=== PATIENT | female | born 1965 | race Caucasian/White ===

== ENCOUNTER 2020-05-22 08:20 | Inpatient (IN) | payer OTHER ==
--- NOTE | 2020-05-22 08:37 | BHS.RME ---
Substance Use & Tx History - Substance Use History Alcohol Substance amount: 1.5 bottles wine Frequency of use: Daily Substance route: Oral Date of Last Use: 05/16/20 - Last Treatment Date of last treatment: 05/16-05/21/20 Treatment type: Substance Use Disorder (EDISON) Where was last treatment: Detox Physical/Psych/Mental Status - Behavior General Behavior: Increased activity (restlessness, agitation) Eye Contact: Normal - Cooperativeness Cooperativeness: Cooperative - Thinking Thought Processes: Tight, Logical, Goal Directed Thought content: Future oriented - Physical Health Problems Is patient presently having any pain?: No Does patient presently have any injuries (include location): No Does patient currently have a fever: No Is patient : No CIWA Nausea/Vomitin-No Nausea/No Vomiting Muscle Tremors: None Anxiety: 0-No Anxiety, at Ease Agitation: 0-Normal Activity Paroxysmal Sweats: No Perspiration Orientation: 0-Oriented Tacttile Disturbances: 0-None Auditory Disturbances: 0-None Visual Disturbances: 0-None Headache: 0-None Present CIWA-Ar Total Score: 0
[2020-05-22 08:56] VITALS: BMI 39.6
--- NOTE | 2020-05-22 09:24 | HP ---
CIWA Score Nausea/Vomitin-No Nausea/No Vomiting Muscle Tremors: None Anxiety: 0-No Anxiety, at Ease Agitation: 0-Normal Activity Paroxysmal Sweats: No Perspiration Orientation: 0-Oriented Tacttile Disturbances: 0-None Auditory Disturbances: 0-None Visual Disturbances: 0-None Headache: 0-None Present CIWA-Ar Total Score: 0 - Admission Criteria OASAS Guidelines: Admission for Medically Managed Detox: Requires at least one of the followin. CIWA greater than 12 2. Seizures within the past 24 hours 3. Delirium tremens within the past 24 hours 4. Hallucinations within the past 24 hours 5. Acute intervention needed for co occurring medical disorder 6. Acute intervention needed for co occurring psychiatric disorder 7. Severe withdrawal that cannot be handled at a lower level of care (continued vomiting, continued diarrhea, abnormal vital signs) requiring intravenous medication and/or fluids 8. Admitting History and Physical - Admission Chief Complaint: " I want to go to rehab. I just completed detox." History of Present Illness: 54 year old female with history of alcohol dependence who just completed detox at [facility] yesterday and discharged yesterday. COVID swab negative from her original admission at [facility] on 05/19/20. Substance Use & Tx History - Substance Use History Alcohol Substance amount: 1.5 bottles wine Frequency of use: Daily Substance route: Oral Date of Last Use: 05/16/20 - Last Treatment Date of last treatment: 05/16-05/21/20 Treatment type: Substance Use Disorder (EDISON) Where was last treatment: Detox PMH: Sjogren's Disesase, Fibromyalgia, Hypothyroidism, Hypoglycemia, Urinary Incontinence, Pituitary Microadenoma Psurg: Gastric bypass 10 years ago, C/S X 3, Right Knee Replacement, Right Foot Fusion Psych: anxiety, Depression Lives in [place] with and 3 children. No legal issues pending. She meets criteria for rehab as patient needs to gain insight into her disorder and has had multiple failures on detox. DOMINIQUE=0 CIWA=0 History Source: Patient Limitations to Obtaining History: No Limitations - Past Medical History Renal/: Yes: Other (urinary incontinence) Musculoskeletal: Yes: Other Rheumatology: Yes: Fibromyalgia, Vasculitis Endocrine: Yes: Hypothyroidism - Past Surgical History Past Surgical History: Yes: Bariatric Surgery, Joint Replacement Additional Past Surgical History: Right foot fusion - Smoking History Smoking history: Never smoked Have you smoked in the past 12 months: No - Alcohol/Substance Use Hx Alcohol Use: Yes Number of Drinks Daily: 10 - Social History Usual Living Arrangement: Yes: With Spouse Do you think of yourself as: Straight/Heterosexual ADL: Independent 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, 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 History of Recent Travel: No Admission ROS S - HPI Exam Limitations: No Limitations - Ebola screening Have you traveled outside of the country in the last 21 days: No Have you had contact with anyone from an Ebola affected area: No Have you been sick,other than usual withdrawal symptoms: No Do you have a fever: No - Review of Systems Constitutional: No Symptoms Reported EENT: reports: No Symptoms Reported Respiratory: reports: No Symptoms reported Cardiac: reports: No Symptoms Reported GI: reports: No Symptoms Reported : reports: No Symptoms Reported Musculoskeletal: reports: No Symptoms Reported Integumentary: reports: No Symptoms Reported Neuro: reports: No Symptoms reported Endocrine: reports: No Symptoms Reported Hematology: reports: No Symptoms Reported Psychiatric: reports: Judgement Intact, Mood/Affect Appropiate, Orientated x3 Other Systems: Reviewed and Negative Patient History - Patient Medical History Hx Anemia: No Hx Asthma: No Hx Chronic Obstructive Pulmonary Disease (COPD): No Hx Cancer: No Hx Cardiac Disorders: No Hx Congestive Heart Failure: No Hx Hypertension: No Hx Hypercholesterolemia: No Hx Pacemaker: No HX Cerebrovascular Accident: No Hx Seizures: No Hx Dementia: No Hx Diabetes: No Hx Gastrointestinal Disorders: No Hx Liver Disease: No Hx Genitourinary Disorders: Yes (urinary incontinence) Hx Sexually Transmitted Disorders: No Hx Renal Disease (ESRD): No Hx Thyroid Disease: Yes (hypothyroidism) Hx Human Immunodeficiency Virus (HIV): No Hx Hepatitis C: No Hx Depression: Yes Hx Suicide Attempt: No Hx Bipolar Disorder: No Hx Schizophrenia: No Other Medical History: Anxiety Disorder - Patient Surgical History Past Surgical History: Yes Hx Neurologic Surgery: No Hx Cataract Extraction: No Hx Cardiac Surgery: No Hx Lung Surgery: No Hx Breast Surgery: No Hx Breast Biopsy: No Hx Abdominal Surgery: No Hx Appendectomy: No Hx Cholecystectomy: No Hx Genitourinary Surgery: No Hx Section: Yes (X3) Hx Orthopedic Surgery: Yes (right hip replacement right foot fusion) Hx Hysterectomy: No Anesthesia Reaction: No - PPD History Previous Implant?: Yes Documented Results: Negative w/proof Implanted On Prior [facility] Admission?: No PPD to be Administered?: Yes - Smoking Cessation Smoking history: Never smoked Have you smoked in the past 12 months: No Hx Chewing Tobacco Use: No Initiated information on smoking cessation: No - Substance & Tx. History Hx Alcohol Use: Yes Hx Substance Use: Yes Substance Use Type: Alcohol Hx Substance Use Treatment: Yes - Substances abused Alcohol Substance route: Oral Frequency: Daily Amount used: 1bottle and half bottle Age of first use: 20 Date of last use: 05/12/20 Admission Physical Exam S - Vital Signs Vital Signs: Vital Signs - 24 hr 05/22/20 08:48 Temperature 97.7 F Pulse Rate 65 Respiratory 18 Rate Blood Pressure 118/81 - Physical General Appearance: Yes: No Apparent Distress, Nourished, Appropriately Dressed HEENTM: Yes: EOMI, Hearing grossly Normal, Normal ENT Inspection, Normocephalic, Normal Voice, DEBBIE, Pharynx Normal, Tm's normal Respiratory: Yes: Chest Non-Tender, Lungs Clear, Normal Breath Sounds, No Respiratory Distress, No Accessory Muscle Use Neck: Yes: No masses,lesions,Nodules, Supple, Trachea in good position Breast: Yes: Breast Exam Deferred Cardiology: Yes: Regular Rhythm, Regular Rate, S1, S2 Abdominal: Yes: Normal Bowel Sounds, Non Tender, Soft, Protuberent, Surgical Scar Genitourinary: Yes: Within Normal Limits Back: Yes: Normal Inspection Musculoskeletal: Yes: full range of Motion, Gait Steady, Pelvis Stable Extremities: Yes: Normal Capillary Refill, Normal Inspection, Normal Range of Motion, Non-Tender 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: Yes: 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 NML intact, Fully Oriented, Alert, Motor Strength 5/5, Normal Mood/Affect, Normal Response Integumentary: Yes: Normal Color, Dry, Warm Lymphatic: Yes: Within Normal Limits - Diagnostic (1) Alcohol dependence in early, early partial, sustained full, or sustained partial remission Current Visit: Yes Status: Acute (2) Obesity (BMI 30.0-34.9) Current Visit: Yes Status: Acute (3) Sjogren's disease Current Visit: Yes Status: Acute (4) Fibromyalgia Current Visit: Yes Status: Acute (5) Hypothyroidism Current Visit: Yes Status: Acute (6) Pituitary microadenoma Current Visit: Yes Status: Acute (7) Urinary incontinence Current Visit: Yes Status: Acute (8) Anxiety Current Visit: Yes Status: Acute (9) Depression Current Visit: Yes Status: Acute Cleared for Admission [facility] - Detox or Rehab [facility] Level of Care: Medically Supervised Detox Regimen/Protocol: Not Applicable Claeared for Rehab Admission: Yes Screened but not Admitted - Documentation of Visit Screened but not Admitted: No Breathalyzer - Breathalyzer Breathalyzer: 0 Vital Signs - Vital Signs Vital signs refused: No Temperature: 97.7 F Temperature source: Oral Pulse Rate: 65 Respiratory Rate: 18 Blood Pressure: 118/81 Blood Pressure position: Sitting - Height Height: 5 ft - Weight Weight: 203 lb Weight measurement method: Standing scale - BMI Body Mass Index (BMI): 39.6 - Bowel Function Bowel Movement: No Urine Drug Screen - Test Device Lot number: [id number] Expiration date: 05/06/22 (just completed detox) - Control Is test valid?: Yes - Results Drug screen NEGATIVE: No Urine drug screen results: BZO-Benzodiazepines Inpatient Rehab Admission - Rehab Decision to Admit Inpatient rehab admission?: Yes - Initial Determination Are CD services needed?: Yes Free of communicable disease: Yes Not in need of hospitalization: Yes - Rehab Admission Criteria Previous failed treatment: Yes Poor recovery environment: Yes Comorbidities: Yes Lacks judgement: Yes Patient is meeting Inpatient Rehab admission criteria:: Yes
[2020-05-22] MEDS ORDERED: LOPERAMIDE HCL 2 MG CAPSULE PO PRN (10:04)
[2020-05-22] MEDS ORDERED: guaiFENesin 200 MG/10 ML 10 ML UNIT-DOSE CUPS PO PRN (10:04)
[2020-05-22] MEDS ORDERED: MAGNESIUM CITRATE 300 ML BOTTLE PO PRN (10:04)
[2020-05-22] MEDS ORDERED: P-EPHED 60MG/TRIPROLIDI 2.5MG TABLET PO PRN (10:04)
[2020-05-22] MEDS ORDERED: TUBERCULIN PPD 5 TU/0.1ML VIAL ID ONE (13:07)
[2020-05-22] MEDS: hydrOXYzine PAMOATE 25 MG CAPSULE (FP) PO SCH ×3 (13:10→21:33)
[2020-05-22] MEDS: PRENATAL VITAMINS W/ FOLIC ACID TABLET (FP) PO SCH (13:10)
[2020-05-22] MEDS ORDERED: PT OWN MED DRAWER 7, Y5N ONE ×3 (13:23→19:17)
[2020-05-22 14:36] LABS: HEMATOCRIT 40.6 % (32.4-45.2); HEMOGLOBIN 13.2 GM/dL (10.7-15.3); MCH 31.5 pg (25.7-33.7); MCHC 32.6 g/dl (32.0-36.0); MEAN CELL VOLUME 96.6 fl (80-96); MEAN PLT VOLUME 8.9 fl (7.5-11.1); PLATELET COUNT 256 K/MM3 (134-434); WHITE BLOOD COUNT 5.2 K/mm3 (4.0-10.0)
[2020-05-22 14:40] LABS: BILIRUBIN,TOTAL 0.5 mg/dL (0.2-1); CALCIUM 9.1 mg/dL (8.5-10.1); CREATININE 1.1 mg/dL (0.55-1.3); POTASSIUM 4.6 mmol/L (3.5-5.1); TOT PROT 7.6 g/dl (6.4-8.2)
[2020-05-22 14:54] LABS: SICKLE CELL SCREEN NEGATIVE (NEGATIVE)
--- NOTE | 2020-05-22 16:57 | EKG ---
Test Reason : Blood Pressure : / mmHG Vent. Rate : 056 BPM Atrial Rate : 056 BPM P-R Int : 176 ms QRS Dur : 094 ms QT Int : 464 ms P-R-T Axes : 044 003 005 degrees QTc Int : 447 ms SINUS BRADYCARDIA MODERATE VOLTAGE CRITERIA FOR LVH, MAY BE NORMAL VARIANT BORDERLINE ECG NO PREVIOUS ECGS AVAILABLE Confirmed by ROSA PERRIN MD ([id number]) on 05/22/2020 4:57:40 PM Referred By: Confirmed By:ROSA PERRIN MD
[2020-05-22 17:01] LABS: URINE APPEARANCE CLEAR; URINE BILIRUBIN NEGATIVE (NEGATIVE); URINE COLOR YELLOW; URINE GLUCOSE (UA) NEGATIVE (NEGATIVE); URINE KETONE NEGATIVE (NEGATIVE); URINE LEUK ESTERASE NEGATIVE (NEGATIVE); URINE NITRITE NEGATIVE (NEGATIVE); URINE PROTEIN NEGATIVE (NEGATIVE)
[2020-05-22] MEDS: HYDROXYCHLOROQUINE SO4 200 MG TABLET (FP) PO SCH (17:51)
[2020-05-22] MEDS: OXYBUTYNIN CHLORIDE 5 MG TABLET PO SCH (21:33)
[2020-05-22] MEDS: THIAMINE HCL 100 MG TABLET (FP) PO SCH (21:33)
[2020-05-22] MEDS: MELATONIN 5 MG TABLETS PO SCH (21:33)
[2020-05-22] MEDS ORDERED: PATIENT'S OWN MEDICATION (NON-FORMULARY) (Mirabegron [Myrbetriq] 50 MG) PO SCH (22:00)
[2020-05-23] MEDS: ACETAMINOPHEN 325 MG TABLET (FP) PO PRN (00:37)
[2020-05-23] MEDS ORDERED: PT OWN MED DRAWER 7, Y5N ONE ×5 (06:08→19:56)
[2020-05-23] MEDS: hydrOXYzine PAMOATE 25 MG CAPSULE (FP) PO SCH ×2 (06:26→10:01)
[2020-05-23] MEDS: LEVOTHYROXINE NA 25 MCG TABLET (FP) PO SCH (07:24)
[2020-05-23] MEDS: HYDROXYCHLOROQUINE SO4 200 MG TABLET (FP) PO SCH ×2 (07:36→18:23)
[2020-05-23] MEDS: PRENATAL VITAMINS W/ FOLIC ACID TABLET (FP) PO SCH (10:01)
[2020-05-23] MEDS: OXYBUTYNIN CHLORIDE 5 MG TABLET PO SCH ×2 (10:01→21:41)
[2020-05-23] MEDS: FOLIC ACID 1 MG TABLET (FP) PO SCH (10:01)
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
[2020-05-23] MEDS: FLUoxetine HCL 20 MG CAPSULE PO SCH (11:51)
[2020-05-23] MEDS: hydrOXYzine PAMOATE 50 MG CAPSULE (FP) PO PRN ×2 (11:55→18:25)
--- NOTE | 2020-05-23 12:04 | PN ---
[facility] Progress Note Note: PATIENT C/O FEELING INTERMITTENT DIZZINESS WHEN ARISING FROM BED AND UNSTEADY GAIT. SHE STATES SHE HAS HAD SYMPTOMS IN THE PAST AND HAD TESTING DONE FROM CT OF THE HEAD, BLOOD WORK AND NEUROLOGY CONSULT. PATIENT STATES WORK UP WAS NEGATIVE BUT SHE CONTINUES TO HAVE SYMPTOMS. SHE IS ADMITTED TO REHAB FOR ALCOHOL DEPENDENCE AND CURRENTLY DENIES SHAKE,SWEATS, HEADACHE, CP AND SOB. Vital Signs Temperature 97.5 F L 05/23/20 07:22 Pulse Rate 60 05/23/20 07:22 Respiratory Rate 18 05/23/20 07:22 Blood Pressure 113/70 05/23/20 07:22 O2 Sat by Pulse Oximetry (%) 99 05/22/20 20:39 Laboratory Tests 05/22/20 05/22/20 05/22/20 08:50 10:10 10:10 WBC 5.2 RBC 4.20 Hgb 13.2 Hct 40.6 MCV 96.6 H MCH 31.5 MCHC 32.6 RDW 16.0 H Plt Count 256 MPV 8.9 Sickle Cell Screen Negative Sodium Potassium Chloride Carbon Dioxide Anion Gap BUN Creatinine Est GFR (CKD-EPI)AfAm Est GFR (CKD-EPI)NonAf Random Glucose Calcium Total Bilirubin AST ALT Alkaline Phosphatase Total Protein Albumin Urine Color Urine Appearance Urine pH Ur Specific [place] Urine Protein Urine Glucose (UA) Urine Ketones Urine Blood Urine Nitrite Urine Bilirubin Urine Urobilinogen Ur Leukocyte Esterase POC Urine HCG, Qual Negative Syphilis Serology HIV Ag/Ab Combo Qual Negative 05/22/20 05/22/20 05/22/20 10:10 10:10 14:11 WBC RBC Hgb Hct MCV MCH MCHC RDW Plt Count MPV Sickle Cell Screen Sodium 137 Potassium 4.6 Chloride 103 Carbon Dioxide 28 Anion Gap 6 L BUN 14.0 Creatinine 1.1 Est GFR (CKD-EPI)AfAm 65.45 Est GFR (CKD-EPI)NonAf 56.47 Random Glucose 78 Calcium 9.1 Total Bilirubin 0.5 AST 28 ALT 29 Alkaline Phosphatase 101 Total Protein 7.6 Albumin 4.0 Urine Color Yellow Urine Appearance Clear Urine pH 5.0 Ur Specific [place] 1.009 L Urine Protein Negative Urine Glucose (UA) Negative Urine Ketones Negative Urine Blood Negative Urine Nitrite Negative Urine Bilirubin Negative Urine Urobilinogen 1.0 Ur Leukocyte Esterase Negative POC Urine HCG, Qual Syphilis Serology Non-reactive HIV Ag/Ab Combo Qual PE ALERT AND ORIENTED X 3 SKIN WARM AND DRY +PERRLA EOMS INTACT BL GI ND,NT EXT FULL ROM, AMB AD JESSICA NO TREMORS A/P: ALCOHOL DEPENDENCE EPISODIC DIZZINESS ORAL FLUID ENCOURAGED-WATER PITCHER ORDERED AT BEDSIDE ORTHOSTATIC BP EVERY 8 HOURS X 3 DAYS BGM DAILY X 3 DAYS CANE FOR AMBULATION SUPPORT CONTINUE TO MONITOR CLINICALLY
[2020-05-23] MEDS ORDERED: QUEtiapine FUMARATE 100 MG TABLET (FP) ONE (20:01)
[2020-05-23] MEDS ORDERED: QUEtiapine FUMARATE 25 MG TABLET ONE (20:02)
[2020-05-23] MEDS: IBUPROFEN 400 MG TABLET (FP) PO PRN (20:20)
[2020-05-23] MEDS: MELATONIN 5 MG TABLETS PO SCH (21:41)
[2020-05-23] MEDS: QUETIAPINE FUMARATE 100 MG, QUETIAPINE FUMARATE 25 MG PO SCH (21:41)
[2020-05-23] MEDS: THIAMINE HCL 100 MG TABLET (FP) PO SCH (21:43)
[2020-05-23] MEDS ORDERED: QUEtiapine FUMARATE 300 MG TABLET PO SCH (22:00)
[2020-05-24] MEDS: LEVOTHYROXINE NA 25 MCG TABLET (FP) PO SCH (06:19)
[2020-05-24] MEDS: hydrOXYzine PAMOATE 50 MG CAPSULE (FP) PO PRN ×4 (06:21→22:19)
[2020-05-24] MEDS: HYDROXYCHLOROQUINE SO4 200 MG TABLET (FP) PO SCH ×2 (07:26→17:57)
[2020-05-24] MEDS ORDERED: PT OWN MED DRAWER 7, Y5N ONE ×2 (08:22→17:57)
[2020-05-24] MEDS: FOLIC ACID 1 MG TABLET (FP) PO SCH (10:49)
[2020-05-24] MEDS: FLUoxetine HCL 20 MG CAPSULE PO SCH (10:49)
[2020-05-24] MEDS: OXYBUTYNIN CHLORIDE 5 MG TABLET PO SCH ×2 (10:49→21:17)
[2020-05-24] MEDS: PRENATAL VITAMINS W/ FOLIC ACID TABLET (FP) PO SCH (10:49)
[2020-05-24] MEDS ORDERED: QUEtiapine FUMARATE 100 MG TABLET (FP) ONE (19:19)
[2020-05-24] MEDS ORDERED: QUEtiapine FUMARATE 25 MG TABLET ONE (19:19)
[2020-05-24] MEDS: MELATONIN 5 MG TABLETS PO SCH (21:16)
[2020-05-24] MEDS: THIAMINE HCL 100 MG TABLET (FP) PO SCH (21:16)
[2020-05-24] MEDS: QUETIAPINE FUMARATE 100 MG, QUETIAPINE FUMARATE 25 MG PO SCH (21:16)
[2020-05-25] MEDS ORDERED: PT OWN MED DRAWER 7, Y5N ONE ×3 (03:11→16:46)
[2020-05-25] MEDS: LEVOTHYROXINE NA 25 MCG TABLET (FP) PO SCH (06:26)
[2020-05-25] MEDS: hydrOXYzine PAMOATE 50 MG CAPSULE (FP) PO PRN ×4 (06:27→21:11)
[2020-05-25] MEDS: HYDROXYCHLOROQUINE SO4 200 MG TABLET (FP) PO SCH ×2 (07:01→17:06)
[2020-05-25] MEDS: FLUoxetine HCL 20 MG CAPSULE PO SCH (10:09)
[2020-05-25] MEDS: OXYBUTYNIN CHLORIDE 5 MG TABLET PO SCH ×2 (10:09→21:09)
[2020-05-25] MEDS: FOLIC ACID 1 MG TABLET (FP) PO SCH (10:09)
[2020-05-25] MEDS: PRENATAL VITAMINS W/ FOLIC ACID TABLET (FP) PO SCH (10:09)
[2020-05-25] MEDS ORDERED: QUEtiapine FUMARATE 100 MG TABLET (FP) ONE (18:59)
[2020-05-25] MEDS ORDERED: QUEtiapine FUMARATE 25 MG TABLET ONE (19:00)
[2020-05-25] MEDS: QUETIAPINE FUMARATE 100 MG, QUETIAPINE FUMARATE 25 MG PO SCH (21:09)
[2020-05-25] MEDS: MELATONIN 5 MG TABLETS PO SCH (21:09)
[2020-05-25] MEDS: THIAMINE HCL 100 MG TABLET (FP) PO SCH (21:10)
[2020-05-26] MEDS: LEVOTHYROXINE NA 25 MCG TABLET (FP) PO SCH (06:31)
[2020-05-26] MEDS: hydrOXYzine PAMOATE 50 MG CAPSULE (FP) PO PRN ×2 (06:31→18:01)
[2020-05-26] MEDS: HYDROXYCHLOROQUINE SO4 200 MG TABLET (FP) PO SCH ×2 (07:17→18:00)
[2020-05-26] MEDS: FLUoxetine HCL 20 MG CAPSULE PO SCH (09:40)
[2020-05-26] MEDS: PRENATAL VITAMINS W/ FOLIC ACID TABLET (FP) PO SCH (09:40)
[2020-05-26] MEDS: OXYBUTYNIN CHLORIDE 5 MG TABLET PO SCH ×2 (09:40→21:35)
[2020-05-26] MEDS: FOLIC ACID 1 MG TABLET (FP) PO SCH (09:40)
--- NOTE | 2020-05-26 11:38 | PN ---
[facility] Progress Note Note: Vital Signs Temperature 98.2 F 05/26/20 06:20 Pulse Rate 60 05/26/20 06:20 Respiratory Rate 18 05/26/20 06:20 Blood Pressure 98/62 05/26/20 06:20 O2 Sat by Pulse Oximetry (%) 97 05/26/20 06:20 Laboratory Tests 05/22/20 05/22/20 05/22/20 08:50 10:10 10:10 WBC 5.2 RBC 4.20 Hgb 13.2 Hct 40.6 MCV 96.6 H MCH 31.5 MCHC 32.6 RDW 16.0 H Plt Count 256 MPV 8.9 Sickle Cell Screen Negative Sodium Potassium Chloride Carbon Dioxide Anion Gap BUN Creatinine Est GFR (CKD-EPI)AfAm Est GFR (CKD-EPI)NonAf POC Glucometer Random Glucose Calcium Total Bilirubin AST ALT Alkaline Phosphatase Total Protein Albumin Urine Color Urine Appearance Urine pH Ur Specific [place] Urine Protein Urine Glucose (UA) Urine Ketones Urine Blood Urine Nitrite Urine Bilirubin Urine Urobilinogen Ur Leukocyte Esterase POC Urine HCG, Qual Negative Syphilis Serology HIV Ag/Ab Combo Qual Negative 05/22/20 05/22/20 05/22/20 10:10 10:10 14:11 WBC RBC Hgb Hct MCV MCH MCHC RDW Plt Count MPV Sickle Cell Screen Sodium 137 Potassium 4.6 Chloride 103 Carbon Dioxide 28 Anion Gap 6 L BUN 14.0 Creatinine 1.1 Est GFR (CKD-EPI)AfAm 65.45 Est GFR (CKD-EPI)NonAf 56.47 POC Glucometer Random Glucose 78 Calcium 9.1 Total Bilirubin 0.5 AST 28 ALT 29 Alkaline Phosphatase 101 Total Protein 7.6 Albumin 4.0 Urine Color Yellow Urine Appearance Clear Urine pH 5.0 Ur Specific [place] 1.009 L Urine Protein Negative Urine Glucose (UA) Negative Urine Ketones Negative Urine Blood Negative Urine Nitrite Negative Urine Bilirubin Negative Urine Urobilinogen 1.0 Ur Leukocyte Esterase Negative POC Urine HCG, Qual Syphilis Serology Non-reactive HIV Ag/Ab Combo Qual 05/24/20 05/25/20 05/26/20 06:18 06:25 06:31 WBC RBC Hgb Hct MCV MCH MCHC RDW Plt Count MPV Sickle Cell Screen Sodium Potassium Chloride Carbon Dioxide Anion Gap BUN Creatinine Est GFR (CKD-EPI)AfAm Est GFR (CKD-EPI)NonAf POC Glucometer 88 85 98 Random Glucose Calcium Total Bilirubin AST ALT Alkaline Phosphatase Total Protein Albumin Urine Color Urine Appearance Urine pH Ur Specific [place] Urine Protein Urine Glucose (UA) Urine Ketones Urine Blood Urine Nitrite Urine Bilirubin Urine Urobilinogen Ur Leukocyte Esterase POC Urine HCG, Qual Syphilis Serology HIV Ag/Ab Combo Qual Patient evaluated for follow up unsteady gait. ROS: occasional dizziness. Denies lightheadedness, syncope, shakes and sweating PE alert and oriented x 3 skin warm and dry +perrla, eoms intact bl ext full rom, amb ad darlene no tremors ambulating steady with cane A/P episodic dizziness/unsteady gait BGM reviewed and results stable 85-98 V/S reviewed WNL continue cane for ambulation support Patient medically advised to follow up with PCP/neurologist for work up upon discharge Vital Signs (72 hours) 05/23/20 05/23/20 05/23/20 13:56 14:00 21:12 Temperature 98.4 F Pulse Rate 63 Pulse Rate [ 66 Right side Standing] Respiratory 16 Rate Blood Pressure 113/70 Blood Pressure 128/80 [Right side Standing] O2 Sat by Pulse 96 95 Oximetry (%) 05/24/20 05/24/20 05/24/20 06:14 14:30 18:31 Temperature 97.1 F L Pulse Rate 59 L Pulse Rate [ Right side Standing] Respiratory 16 Rate Blood Pressure 112/75 Blood Pressure [Right side Standing] O2 Sat by Pulse 95 97 97 Oximetry (%) 05/24/20 05/25/20 05/25/20 20:44 06:49 14:30 Temperature 97.5 F L Pulse Rate 58 L Pulse Rate [ Right side Standing] Respiratory 18 Rate Blood Pressure 103/68 Blood Pressure [Right side Standing] O2 Sat by Pulse 99 97 98 Oximetry (%) 05/25/20 05/26/20 20:33 06:20 Temperature 98.2 F Pulse Rate 60 Pulse Rate [ Right side Standing] Respiratory 18 Rate Blood Pressure 98/62 Blood Pressure [Right side Standing] O2 Sat by Pulse 96 97 Oximetry (%)
--- NOTE | 2020-05-26 11:44 | PN ---
[facility] Progress Note Note: Pt requesting Vit B12 and Vit D. Vital Signs - 24 hr 05/25/20 05/25/20 05/26/20 14:30 20:33 06:20 Temperature 98.2 F Pulse Rate 60 Respiratory 18 Rate Blood Pressure 98/62 O2 Sat by Pulse 98 96 97 Oximetry (%) Laboratory Tests 05/22/20 05/22/20 05/22/20 08:50 10:10 10:10 WBC 5.2 RBC 4.20 Hgb 13.2 Hct 40.6 MCV 96.6 H MCH 31.5 MCHC 32.6 RDW 16.0 H Plt Count 256 MPV 8.9 Sickle Cell Screen Negative Sodium Potassium Chloride Carbon Dioxide Anion Gap BUN Creatinine Est GFR (CKD-EPI)AfAm Est GFR (CKD-EPI)NonAf POC Glucometer Random Glucose Calcium Total Bilirubin AST ALT Alkaline Phosphatase Total Protein Albumin Urine Color Urine Appearance Urine pH Ur Specific [place] Urine Protein Urine Glucose (UA) Urine Ketones Urine Blood Urine Nitrite Urine Bilirubin Urine Urobilinogen Ur Leukocyte Esterase POC Urine HCG, Qual Negative Syphilis Serology HIV Ag/Ab Combo Qual Negative 05/22/20 05/22/20 05/22/20 10:10 10:10 14:11 WBC RBC Hgb Hct MCV MCH MCHC RDW Plt Count MPV Sickle Cell Screen Sodium 137 Potassium 4.6 Chloride 103 Carbon Dioxide 28 Anion Gap 6 L BUN 14.0 Creatinine 1.1 Est GFR (CKD-EPI)AfAm 65.45 Est GFR (CKD-EPI)NonAf 56.47 POC Glucometer Random Glucose 78 Calcium 9.1 Total Bilirubin 0.5 AST 28 ALT 29 Alkaline Phosphatase 101 Total Protein 7.6 Albumin 4.0 Urine Color Yellow Urine Appearance Clear Urine pH 5.0 Ur Specific [place] 1.009 L Urine Protein Negative Urine Glucose (UA) Negative Urine Ketones Negative Urine Blood Negative Urine Nitrite Negative Urine Bilirubin Negative Urine Urobilinogen 1.0 Ur Leukocyte Esterase Negative POC Urine HCG, Qual Syphilis Serology Non-reactive HIV Ag/Ab Combo Qual 05/24/20 05/25/20 05/26/20 06:18 06:25 06:31 WBC RBC Hgb Hct MCV MCH MCHC RDW Plt Count MPV Sickle Cell Screen Sodium Potassium Chloride Carbon Dioxide Anion Gap BUN Creatinine Est GFR (CKD-EPI)AfAm Est GFR (CKD-EPI)NonAf POC Glucometer 88 85 98 Random Glucose Calcium Total Bilirubin AST ALT Alkaline Phosphatase Total Protein Albumin Urine Color Urine Appearance Urine pH Ur Specific [place] Urine Protein Urine Glucose (UA) Urine Ketones Urine Blood Urine Nitrite Urine Bilirubin Urine Urobilinogen Ur Leukocyte Esterase POC Urine HCG, Qual Syphilis Serology HIV Ag/Ab Combo Qual P-Restarted Vit B12 and Vit D as directed.
[2020-05-26] MEDS: MAG HYDROX/AL HYDROX/SIMETH 30 ML UNIT-DOSE CUP PO PRN (12:35)
[2020-05-26] MEDS: CYANOCOBALAMIN 1,000 MCG TABLET (FP) PO SCH (12:37)
[2020-05-26] MEDS ORDERED: PT OWN MED DRAWER 7, Y5N ONE ×2 (18:00→21:27)
[2020-05-26] MEDS ORDERED: QUEtiapine FUMARATE 100 MG TABLET (FP) ONE (21:26)
[2020-05-26] MEDS ORDERED: QUEtiapine FUMARATE 25 MG TABLET ONE (21:26)
[2020-05-26] MEDS: QUETIAPINE FUMARATE 100 MG, QUETIAPINE FUMARATE 25 MG PO SCH (21:34)
[2020-05-26] MEDS: THIAMINE HCL 100 MG TABLET (FP) PO SCH (21:35)
[2020-05-26] MEDS: MELATONIN 5 MG TABLETS PO SCH (21:36)
[2020-05-27] MEDS ORDERED: PT OWN MED DRAWER 7, Y5N ONE ×3 (04:00→19:35)
[2020-05-27] MEDS: MAGNESIUM HYDROX 2400MG/30ML ORAL SUSPENSION 30 ML CUP PO PRN (04:30)
[2020-05-27] MEDS: hydrOXYzine PAMOATE 50 MG CAPSULE (FP) PO PRN ×3 (05:54→17:55)
[2020-05-27] MEDS: LEVOTHYROXINE NA 25 MCG TABLET (FP) PO SCH (06:08)
[2020-05-27] MEDS: HYDROXYCHLOROQUINE SO4 200 MG TABLET (FP) PO SCH ×2 (07:26→17:53)
[2020-05-27] MEDS: FLUoxetine HCL 20 MG CAPSULE PO SCH (09:45)
[2020-05-27] MEDS: FOLIC ACID 1 MG TABLET (FP) PO SCH (09:45)
[2020-05-27] MEDS: CHOLECALCIFEROL (VIT D3) 1,000 UNIT (25 MCG) TABLET PO SCH (09:46)
[2020-05-27] MEDS: PRENATAL VITAMINS W/ FOLIC ACID TABLET (FP) PO SCH (09:46)
[2020-05-27] MEDS: CYANOCOBALAMIN 1,000 MCG TABLET (FP) PO SCH (09:46)
[2020-05-27] MEDS: OXYBUTYNIN CHLORIDE 5 MG TABLET PO SCH ×2 (09:46→21:15)
[2020-05-27] MEDS ORDERED: QUEtiapine FUMARATE 25 MG TABLET ONE (19:34)
[2020-05-27] MEDS ORDERED: QUEtiapine FUMARATE 100 MG TABLET (FP) ONE (19:34)
[2020-05-27] MEDS: MELATONIN 5 MG TABLETS PO SCH (21:14)
[2020-05-27] MEDS: QUETIAPINE FUMARATE 100 MG, QUETIAPINE FUMARATE 25 MG PO SCH (21:15)
[2020-05-27] MEDS: THIAMINE HCL 100 MG TABLET (FP) PO SCH (21:15)
[2020-05-28] MEDS: LEVOTHYROXINE NA 25 MCG TABLET (FP) PO SCH (06:28)
[2020-05-28] MEDS: hydrOXYzine PAMOATE 50 MG CAPSULE (FP) PO PRN ×3 (06:28→17:42)
[2020-05-28] MEDS: HYDROXYCHLOROQUINE SO4 200 MG TABLET (FP) PO SCH ×2 (07:11→17:40)
[2020-05-28] MEDS ORDERED: PT OWN MED DRAWER 7, Y5N ONE ×4 (08:49→21:23)
[2020-05-28] MEDS: OXYBUTYNIN CHLORIDE 5 MG TABLET PO SCH ×2 (09:28→21:20)
[2020-05-28] MEDS: PRENATAL VITAMINS W/ FOLIC ACID TABLET (FP) PO SCH (09:29)
[2020-05-28] MEDS: FLUoxetine HCL 20 MG CAPSULE PO SCH (09:29)
[2020-05-28] MEDS: FOLIC ACID 1 MG TABLET (FP) PO SCH (09:29)
[2020-05-28] MEDS: CYANOCOBALAMIN 1,000 MCG TABLET (FP) PO SCH (09:29)
[2020-05-28] MEDS: CHOLECALCIFEROL (VIT D3) 1,000 UNIT (25 MCG) TABLET PO SCH (09:30)
[2020-05-28] MEDS: IBUPROFEN 400 MG TABLET (FP) PO PRN (12:33)
--- NOTE | 2020-05-28 15:17 | PN ---
[facility] Progress Note Note: c/o muscle spasms/tightness on upper back. Reports she takes Tizanidine for muscle spasm. Pt reports she has a primary care provider, Dr. Hermann Vasquez on [address], [place] Also c/o dry mouth. Vital Signs - 24 hr 05/27/20 05/27/20 05/28/20 21:14 22:27 06:25 Temperature 97.5 F L Pulse Rate 69 61 Respiratory 16 Rate Blood Pressure 95/64 115/70 O2 Sat by Pulse 98 97 Oximetry (%) Alert o x 3 nad oob ambulating with steady gait. Chronic upper back pain Lidocaine 5% patch TP as directed Fermin-Hernández ointment apply as directed Tizanidine 2 mg po Q8H prn for muscle spasm Increase po fluids
[2020-05-28] MEDS: LIDOCAINE 5% TOPICAL PATCH TP SCH (15:38)
[2020-05-28] MEDS ORDERED: QUEtiapine FUMARATE 100 MG TABLET (FP) ONE (21:18)
[2020-05-28] MEDS ORDERED: QUEtiapine FUMARATE 25 MG TABLET ONE (21:18)
[2020-05-28] MEDS: QUETIAPINE FUMARATE 100 MG, QUETIAPINE FUMARATE 25 MG PO SCH (21:19)
[2020-05-28] MEDS: LIDOCAINE PATCH REMOVAL MC SCH (21:20)
[2020-05-28] MEDS: MELATONIN 5 MG TABLETS PO SCH (21:20)
[2020-05-28] MEDS: METHYL SALICYLATE/MENTHOL OINT 30 GM TUBE TP SCH (21:20)
[2020-05-28] MEDS: THIAMINE HCL 100 MG TABLET (FP) PO SCH (21:21)
[2020-05-28] MEDS ORDERED: METHYL SALICYLATE/MENTHOL OINT 30 GM TUBE TP SCH (22:00)
[2020-05-29] MEDS: hydrOXYzine PAMOATE 50 MG CAPSULE (FP) PO PRN ×3 (06:31→17:42)
[2020-05-29] MEDS: LEVOTHYROXINE NA 25 MCG TABLET (FP) PO SCH (06:31)
[2020-05-29] MEDS: HYDROXYCHLOROQUINE SO4 200 MG TABLET (FP) PO SCH ×2 (07:11→17:40)
[2020-05-29] MEDS ORDERED: PT OWN MED DRAWER 7, Y5N ONE ×2 (08:55→21:31)
[2020-05-29] MEDS: LIDOCAINE 5% TOPICAL PATCH TP SCH (09:41)
[2020-05-29] MEDS: CHOLECALCIFEROL (VIT D3) 1,000 UNIT (25 MCG) TABLET PO SCH (09:42)
[2020-05-29] MEDS: CYANOCOBALAMIN 1,000 MCG TABLET (FP) PO SCH (09:42)
[2020-05-29] MEDS: FLUoxetine HCL 20 MG CAPSULE PO SCH (09:43)
[2020-05-29] MEDS: FOLIC ACID 1 MG TABLET (FP) PO SCH (09:43)
[2020-05-29] MEDS: PRENATAL VITAMINS W/ FOLIC ACID TABLET (FP) PO SCH (09:43)
[2020-05-29] MEDS: METHYL SALICYLATE/MENTHOL OINT 30 GM TUBE TP SCH ×2 (09:43→21:32)
[2020-05-29] MEDS: OXYBUTYNIN CHLORIDE 5 MG TABLET PO SCH ×2 (09:43→21:31)
[2020-05-29] MEDS ORDERED: QUEtiapine FUMARATE 25 MG TABLET ONE (19:46)
[2020-05-29] MEDS ORDERED: QUEtiapine FUMARATE 100 MG TABLET (FP) ONE (19:46)
[2020-05-29] MEDS: THIAMINE HCL 100 MG TABLET (FP) PO SCH (21:28)
[2020-05-29] MEDS: QUETIAPINE FUMARATE 100 MG, QUETIAPINE FUMARATE 25 MG PO SCH (21:28)
[2020-05-29] MEDS: MELATONIN 5 MG TABLETS PO SCH (21:29)
[2020-05-29] MEDS: LIDOCAINE PATCH REMOVAL MC SCH (21:33)
[2020-05-30] MEDS: LEVOTHYROXINE NA 25 MCG TABLET (FP) PO SCH (06:23)
[2020-05-30] MEDS: hydrOXYzine PAMOATE 50 MG CAPSULE (FP) PO PRN (06:24)
[2020-05-30] MEDS: HYDROXYCHLOROQUINE SO4 200 MG TABLET (FP) PO SCH ×2 (07:01→17:00)
[2020-05-30] MEDS ORDERED: PT OWN MED DRAWER 7, Y5N ONE ×3 (08:38→19:09)
[2020-05-30] MEDS: LIDOCAINE 5% TOPICAL PATCH TP SCH (09:51)
[2020-05-30] MEDS: PRENATAL VITAMINS W/ FOLIC ACID TABLET (FP) PO SCH (09:52)
[2020-05-30] MEDS: CYANOCOBALAMIN 1,000 MCG TABLET (FP) PO SCH (09:52)
[2020-05-30] MEDS: OXYBUTYNIN CHLORIDE 5 MG TABLET PO SCH ×2 (09:52→21:12)
[2020-05-30] MEDS: METHYL SALICYLATE/MENTHOL OINT 30 GM TUBE TP SCH ×2 (09:52→21:12)
[2020-05-30] MEDS: CHOLECALCIFEROL (VIT D3) 1,000 UNIT (25 MCG) TABLET PO SCH (09:52)
[2020-05-30] MEDS: FOLIC ACID 1 MG TABLET (FP) PO SCH (09:52)
[2020-05-30] MEDS: FLUoxetine HCL 20 MG CAPSULE PO SCH (09:52)
--- NOTE | 2020-05-30 13:44 | PN ---
[facility] Progress Note Note: Patient evaluated for rash to right posterior ear and c/o nasal dryness. Laboratory Tests 05/22/20 05/22/20 05/22/20 08:50 10:10 10:10 WBC 5.2 RBC 4.20 Hgb 13.2 Hct 40.6 MCV 96.6 H MCH 31.5 MCHC 32.6 RDW 16.0 H Plt Count 256 MPV 8.9 Sickle Cell Screen Negative Sodium Potassium Chloride Carbon Dioxide Anion Gap BUN Creatinine Est GFR (CKD-EPI)AfAm Est GFR (CKD-EPI)NonAf POC Glucometer Random Glucose Calcium Total Bilirubin AST ALT Alkaline Phosphatase Total Protein Albumin Urine Color Urine Appearance Urine pH Ur Specific [place] Urine Protein Urine Glucose (UA) Urine Ketones Urine Blood Urine Nitrite Urine Bilirubin Urine Urobilinogen Ur Leukocyte Esterase POC Urine HCG, Qual Negative Syphilis Serology HIV Ag/Ab Combo Qual Negative 05/22/20 05/22/20 05/22/20 10:10 10:10 14:11 WBC RBC Hgb Hct MCV MCH MCHC RDW Plt Count MPV Sickle Cell Screen Sodium 137 Potassium 4.6 Chloride 103 Carbon Dioxide 28 Anion Gap 6 L BUN 14.0 Creatinine 1.1 Est GFR (CKD-EPI)AfAm 65.45 Est GFR (CKD-EPI)NonAf 56.47 POC Glucometer Random Glucose 78 Calcium 9.1 Total Bilirubin 0.5 AST 28 ALT 29 Alkaline Phosphatase 101 Total Protein 7.6 Albumin 4.0 Urine Color Yellow Urine Appearance Clear Urine pH 5.0 Ur Specific [place] 1.009 L Urine Protein Negative Urine Glucose (UA) Negative Urine Ketones Negative Urine Blood Negative Urine Nitrite Negative Urine Bilirubin Negative Urine Urobilinogen 1.0 Ur Leukocyte Esterase Negative POC Urine HCG, Qual Syphilis Serology Non-reactive HIV Ag/Ab Combo Qual 05/24/20 05/25/20 05/26/20 06:18 06:25 06:31 WBC RBC Hgb Hct MCV MCH MCHC RDW Plt Count MPV Sickle Cell Screen Sodium Potassium Chloride Carbon Dioxide Anion Gap BUN Creatinine Est GFR (CKD-EPI)AfAm Est GFR (CKD-EPI)NonAf POC Glucometer 88 85 98 Random Glucose Calcium Total Bilirubin AST ALT Alkaline Phosphatase Total Protein Albumin Urine Color Urine Appearance Urine pH Ur Specific [place] Urine Protein Urine Glucose (UA) Urine Ketones Urine Blood Urine Nitrite Urine Bilirubin Urine Urobilinogen Ur Leukocyte Esterase POC Urine HCG, Qual Syphilis Serology HIV Ag/Ab Combo Qual Vital Signs Temperature 97.8 F 05/30/20 06:20 Pulse Rate 56 L 05/30/20 06:20 Respiratory Rate 16 05/30/20 06:20 Blood Pressure 110/74 05/30/20 06:20 O2 Sat by Pulse Oximetry (%) 95 05/30/20 06:20 PE alert and oriented x 3 skin warm and dry +EOMS intact bl bilateral ears symmetrical right posterior auricular area with dry, patchy red rash no open areas A/P Right ear rash possibly related to fungal dermatitis nasal dryness-reported (pt has mask in place) Will start ocean mist NS to moisten nasal mucosa ketoconazole 2% cream daily to right ear rash daily x 2 weeks monitor clinically
[2020-05-30] MEDS: KETOCONAZOLE 2% CREAM - 60GM TUBE TP SCH (14:17)
[2020-05-30] MEDS: ACETAMINOPHEN 325 MG TABLET (FP) PO PRN (18:10)
[2020-05-30] MEDS ORDERED: QUEtiapine FUMARATE 100 MG TABLET (FP) ONE (19:08)
[2020-05-30] MEDS ORDERED: QUEtiapine FUMARATE 25 MG TABLET ONE (19:08)
[2020-05-30] MEDS: LIDOCAINE PATCH REMOVAL MC SCH (21:12)
[2020-05-30] MEDS: MELATONIN 5 MG TABLETS PO SCH (21:12)
[2020-05-30] MEDS: QUETIAPINE FUMARATE 100 MG, QUETIAPINE FUMARATE 25 MG PO SCH (21:12)
[2020-05-30] MEDS: SODIUM CHLORIDE NASAL SPRAY 44 ML BOTTLE NS PRN (21:13)
[2020-05-30] MEDS: TIZANIDINE HCL 2 MG TABLET PO PRN (21:13)
[2020-05-30] MEDS: THIAMINE HCL 100 MG TABLET (FP) PO SCH (21:13)
[2020-05-31] MEDS: LEVOTHYROXINE NA 25 MCG TABLET (FP) PO SCH (06:22)
[2020-05-31] MEDS: hydrOXYzine PAMOATE 50 MG CAPSULE (FP) PO PRN ×3 (06:25→21:12)
[2020-05-31] MEDS: HYDROXYCHLOROQUINE SO4 200 MG TABLET (FP) PO SCH ×2 (07:41→18:27)
[2020-05-31] MEDS ORDERED: PT OWN MED DRAWER 7, Y5N ONE ×4 (07:42→21:13)
[2020-05-31] MEDS: KETOCONAZOLE 2% CREAM - 60GM TUBE TP SCH (09:37)
[2020-05-31] MEDS: PRENATAL VITAMINS W/ FOLIC ACID TABLET (FP) PO SCH (09:37)
[2020-05-31] MEDS: SODIUM CHLORIDE NASAL SPRAY 44 ML BOTTLE NS PRN (09:37)
[2020-05-31] MEDS: FOLIC ACID 1 MG TABLET (FP) PO SCH (09:38)
[2020-05-31] MEDS: METHYL SALICYLATE/MENTHOL OINT 30 GM TUBE TP SCH ×2 (09:38→21:07)
[2020-05-31] MEDS: OXYBUTYNIN CHLORIDE 5 MG TABLET PO SCH ×2 (09:38→21:07)
[2020-05-31] MEDS: CHOLECALCIFEROL (VIT D3) 1,000 UNIT (25 MCG) TABLET PO SCH (09:38)
[2020-05-31] MEDS: FLUoxetine HCL 20 MG CAPSULE PO SCH (09:38)
[2020-05-31] MEDS: CYANOCOBALAMIN 1,000 MCG TABLET (FP) PO SCH (09:38)
[2020-05-31] MEDS: LIDOCAINE 5% TOPICAL PATCH TP SCH (09:39)
[2020-05-31] MEDS ORDERED: QUEtiapine FUMARATE 25 MG TABLET ONE (20:41)
[2020-05-31] MEDS ORDERED: QUEtiapine FUMARATE 100 MG TABLET (FP) ONE (20:41)
[2020-05-31] MEDS: THIAMINE HCL 100 MG TABLET (FP) PO SCH (21:07)
[2020-05-31] MEDS: QUETIAPINE FUMARATE 100 MG, QUETIAPINE FUMARATE 25 MG PO SCH (21:07)
[2020-05-31] MEDS: LIDOCAINE PATCH REMOVAL MC SCH (21:08)
[2020-05-31] MEDS: MELATONIN 5 MG TABLETS PO SCH (21:09)
[2020-05-31] MEDS: TIZANIDINE HCL 2 MG TABLET PO PRN (21:13)
[2020-06-01] MEDS: LEVOTHYROXINE NA 25 MCG TABLET (FP) PO SCH (06:18)
[2020-06-01] MEDS: HYDROXYCHLOROQUINE SO4 200 MG TABLET (FP) PO SCH ×2 (07:24→18:26)
[2020-06-01] MEDS ORDERED: PT OWN MED DRAWER 7, Y5N ONE (07:25)
[2020-06-01] MEDS: SODIUM CHLORIDE NASAL SPRAY 44 ML BOTTLE NS PRN (09:43)
[2020-06-01] MEDS: LIDOCAINE 5% TOPICAL PATCH TP SCH (09:43)
[2020-06-01] MEDS: KETOCONAZOLE 2% CREAM - 60GM TUBE TP SCH (09:43)
[2020-06-01] MEDS: FLUoxetine HCL 20 MG CAPSULE PO SCH (09:44)
[2020-06-01] MEDS: FOLIC ACID 1 MG TABLET (FP) PO SCH (09:44)
[2020-06-01] MEDS: CHOLECALCIFEROL (VIT D3) 1,000 UNIT (25 MCG) TABLET PO SCH (09:44)
[2020-06-01] MEDS: PRENATAL VITAMINS W/ FOLIC ACID TABLET (FP) PO SCH (09:44)
[2020-06-01] MEDS: CYANOCOBALAMIN 1,000 MCG TABLET (FP) PO SCH (09:44)
[2020-06-01] MEDS: OXYBUTYNIN CHLORIDE 5 MG TABLET PO SCH ×2 (09:45→21:18)
[2020-06-01] MEDS: METHYL SALICYLATE/MENTHOL OINT 30 GM TUBE TP SCH ×2 (09:45→21:22)
[2020-06-01] MEDS: MAG HYDROX/AL HYDROX/SIMETH 30 ML UNIT-DOSE CUP PO PRN (11:13)
[2020-06-01] MEDS: ACETAMINOPHEN 325 MG TABLET (FP) PO PRN (18:28)
[2020-06-01] MEDS: hydrOXYzine PAMOATE 50 MG CAPSULE (FP) PO PRN (18:28)
[2020-06-01] MEDS ORDERED: QUEtiapine FUMARATE 25 MG TABLET ONE (19:55)
[2020-06-01] MEDS ORDERED: QUEtiapine FUMARATE 100 MG TABLET (FP) ONE (19:55)
[2020-06-01] MEDS: THIAMINE HCL 100 MG TABLET (FP) PO SCH (21:18)
[2020-06-01] MEDS: QUETIAPINE FUMARATE 100 MG, QUETIAPINE FUMARATE 25 MG PO SCH (21:19)
[2020-06-01] MEDS: MELATONIN 5 MG TABLETS PO SCH (21:20)
[2020-06-01] MEDS: LIDOCAINE PATCH REMOVAL MC SCH (21:20)
[2020-06-02] MEDS: LEVOTHYROXINE NA 25 MCG TABLET (FP) PO SCH (06:18)
[2020-06-02] MEDS ORDERED: PT OWN MED DRAWER 7, Y5N ONE ×9 (06:18→21:37)
[2020-06-02] MEDS: SODIUM CHLORIDE NASAL SPRAY 44 ML BOTTLE NS PRN (06:21)
[2020-06-02] MEDS: HYDROXYCHLOROQUINE SO4 200 MG TABLET (FP) PO SCH ×2 (07:34→20:29)
[2020-06-02] MEDS: OXYBUTYNIN CHLORIDE 5 MG TABLET PO SCH ×2 (09:44→21:38)
[2020-06-02] MEDS: CHOLECALCIFEROL (VIT D3) 1,000 UNIT (25 MCG) TABLET PO SCH (09:44)
[2020-06-02] MEDS: CYANOCOBALAMIN 1,000 MCG TABLET (FP) PO SCH (09:44)
[2020-06-02] MEDS: FOLIC ACID 1 MG TABLET (FP) PO SCH (09:44)
[2020-06-02] MEDS: FLUoxetine HCL 20 MG CAPSULE PO SCH (09:45)
[2020-06-02] MEDS: LIDOCAINE 5% TOPICAL PATCH TP SCH (09:45)
[2020-06-02] MEDS: METHYL SALICYLATE/MENTHOL OINT 30 GM TUBE TP SCH ×2 (09:47→21:34)
[2020-06-02] MEDS: KETOCONAZOLE 2% CREAM - 60GM TUBE TP SCH (10:00)
[2020-06-02] MEDS: MAG HYDROX/AL HYDROX/SIMETH 30 ML UNIT-DOSE CUP PO PRN (10:02)
[2020-06-02] MEDS: PRENATAL VITAMINS W/ FOLIC ACID TABLET (FP) PO SCH (10:55)
[2020-06-02] MEDS: CARBAMIDE PEROXIDE 6.5% OTIC 15 ML BOTTLE AS SCH ×2 (10:55→21:36)
--- NOTE | 2020-06-02 11:46 | PN ---
[facility] Progress Note Note: PATIENT HAS HX OF OAB AND CURRENTLY ON DITROPAN 5MG PO BID. PATIENT STATES " I AM STILL GETTING UP AT NIGHT TO URINATE". SHE DENIES FREQUENCY, BURNING AND URGENCY. Laboratory Tests 05/22/20 05/22/20 05/22/20 08:50 10:10 10:10 WBC 5.2 RBC 4.20 Hgb 13.2 Hct 40.6 MCV 96.6 H MCH 31.5 MCHC 32.6 RDW 16.0 H Plt Count 256 MPV 8.9 Sickle Cell Screen Negative Sodium Potassium Chloride Carbon Dioxide Anion Gap BUN Creatinine Est GFR (CKD-EPI)AfAm Est GFR (CKD-EPI)NonAf POC Glucometer Random Glucose Calcium Total Bilirubin AST ALT Alkaline Phosphatase Total Protein Albumin Urine Color Urine Appearance Urine pH Ur Specific [place] Urine Protein Urine Glucose (UA) Urine Ketones Urine Blood Urine Nitrite Urine Bilirubin Urine Urobilinogen Ur Leukocyte Esterase POC Urine HCG, Qual Negative Syphilis Serology HIV Ag/Ab Combo Qual Negative 05/22/20 05/22/20 05/22/20 10:10 10:10 14:11 WBC RBC Hgb Hct MCV MCH MCHC RDW Plt Count MPV Sickle Cell Screen Sodium 137 Potassium 4.6 Chloride 103 Carbon Dioxide 28 Anion Gap 6 L BUN 14.0 Creatinine 1.1 Est GFR (CKD-EPI)AfAm 65.45 Est GFR (CKD-EPI)NonAf 56.47 POC Glucometer Random Glucose 78 Calcium 9.1 Total Bilirubin 0.5 AST 28 ALT 29 Alkaline Phosphatase 101 Total Protein 7.6 Albumin 4.0 Urine Color Yellow Urine Appearance Clear Urine pH 5.0 Ur Specific [place] 1.009 L Urine Protein Negative Urine Glucose (UA) Negative Urine Ketones Negative Urine Blood Negative Urine Nitrite Negative Urine Bilirubin Negative Urine Urobilinogen 1.0 Ur Leukocyte Esterase Negative POC Urine HCG, Qual Syphilis Serology Non-reactive HIV Ag/Ab Combo Qual 05/24/20 05/25/20 05/26/20 06:18 06:25 06:31 WBC RBC Hgb Hct MCV MCH MCHC RDW Plt Count MPV Sickle Cell Screen Sodium Potassium Chloride Carbon Dioxide Anion Gap BUN Creatinine Est GFR (CKD-EPI)AfAm Est GFR (CKD-EPI)NonAf POC Glucometer 88 85 98 Random Glucose Calcium Total Bilirubin AST ALT Alkaline Phosphatase Total Protein Albumin Urine Color Urine Appearance Urine pH Ur Specific [place] Urine Protein Urine Glucose (UA) Urine Ketones Urine Blood Urine Nitrite Urine Bilirubin Urine Urobilinogen Ur Leukocyte Esterase POC Urine HCG, Qual Syphilis Serology HIV Ag/Ab Combo Qual Vital Signs Temperature 97 F L 06/02/20 06:25 Pulse Rate 64 06/02/20 06:25 Respiratory Rate 18 06/02/20 06:25 Blood Pressure 114/68 06/02/20 06:25 O2 Sat by Pulse Oximetry (%) 96 06/02/20 06:25 A/P OAB DITROPAN CHANGED TO 10MG PO HS.
[2020-06-02] MEDS: hydrOXYzine PAMOATE 50 MG CAPSULE (FP) PO PRN ×2 (14:16→21:41)
[2020-06-02] MEDS ORDERED: QUEtiapine FUMARATE 100 MG TABLET (FP) ONE (20:00)
[2020-06-02] MEDS ORDERED: QUEtiapine FUMARATE 25 MG TABLET ONE (20:00)
[2020-06-02] MEDS: MELATONIN 5 MG TABLETS PO SCH (21:36)
[2020-06-02] MEDS: QUETIAPINE FUMARATE 100 MG, QUETIAPINE FUMARATE 25 MG PO SCH (21:36)
[2020-06-02] MEDS: THIAMINE HCL 100 MG TABLET (FP) PO SCH (21:36)
[2020-06-02] MEDS: LIDOCAINE PATCH REMOVAL MC SCH (21:37)
[2020-06-03] MEDS ORDERED: PT OWN MED DRAWER 7, Y5N ONE ×4 (06:26→21:41)
[2020-06-03] MEDS: LEVOTHYROXINE NA 25 MCG TABLET (FP) PO SCH (06:36)
[2020-06-03] MEDS: hydrOXYzine PAMOATE 50 MG CAPSULE (FP) PO PRN ×3 (06:37→18:15)
[2020-06-03] MEDS: HYDROXYCHLOROQUINE SO4 200 MG TABLET (FP) PO SCH ×2 (07:33→18:11)
[2020-06-03] MEDS: OXYBUTYNIN CHLORIDE 5 MG TABLET PO SCH ×2 (09:42→21:41)
[2020-06-03] MEDS: CYANOCOBALAMIN 1,000 MCG TABLET (FP) PO SCH (09:42)
[2020-06-03] MEDS: FLUoxetine HCL 20 MG CAPSULE PO SCH (09:42)
[2020-06-03] MEDS: SODIUM CHLORIDE NASAL SPRAY 44 ML BOTTLE NS PRN (09:42)
[2020-06-03] MEDS: FOLIC ACID 1 MG TABLET (FP) PO SCH (09:42)
[2020-06-03] MEDS: CHOLECALCIFEROL (VIT D3) 1,000 UNIT (25 MCG) TABLET PO SCH (09:42)
[2020-06-03] MEDS: MAG HYDROX/AL HYDROX/SIMETH 30 ML UNIT-DOSE CUP PO PRN (09:43)
[2020-06-03] MEDS: METHYL SALICYLATE/MENTHOL OINT 30 GM TUBE TP SCH ×2 (09:44→21:36)
[2020-06-03] MEDS: CARBAMIDE PEROXIDE 6.5% OTIC 15 ML BOTTLE AS SCH ×2 (09:44→21:36)
[2020-06-03] MEDS: LIDOCAINE 5% TOPICAL PATCH TP SCH (09:44)
[2020-06-03] MEDS: KETOCONAZOLE 2% CREAM - 60GM TUBE TP SCH (09:45)
[2020-06-03] MEDS: PRENATAL VITAMINS W/ FOLIC ACID TABLET (FP) PO SCH (09:45)
[2020-06-03] MEDS ORDERED: QUEtiapine FUMARATE 25 MG TABLET ONE (18:46)
[2020-06-03] MEDS ORDERED: QUEtiapine FUMARATE 100 MG TABLET (FP) ONE (18:46)
[2020-06-03] MEDS: MELATONIN 5 MG TABLETS PO SCH (21:36)
[2020-06-03] MEDS: QUETIAPINE FUMARATE 100 MG, QUETIAPINE FUMARATE 25 MG PO SCH (21:37)
[2020-06-03] MEDS: LIDOCAINE PATCH REMOVAL MC SCH (21:37)
[2020-06-03] MEDS: THIAMINE HCL 100 MG TABLET (FP) PO SCH (21:37)
[2020-06-04] MEDS: LEVOTHYROXINE NA 25 MCG TABLET (FP) PO SCH (06:33)
[2020-06-04] MEDS: hydrOXYzine PAMOATE 50 MG CAPSULE (FP) PO PRN ×3 (06:34→21:26)
[2020-06-04] MEDS: HYDROXYCHLOROQUINE SO4 200 MG TABLET (FP) PO SCH ×2 (07:03→17:50)
[2020-06-04] MEDS ORDERED: PT OWN MED DRAWER 7, Y5N ONE ×6 (07:04→21:28)
[2020-06-04] MEDS: LIDOCAINE 5% TOPICAL PATCH TP SCH (10:06)
[2020-06-04] MEDS: PRENATAL VITAMINS W/ FOLIC ACID TABLET (FP) PO SCH (10:07)
[2020-06-04] MEDS: CYANOCOBALAMIN 1,000 MCG TABLET (FP) PO SCH (10:07)
[2020-06-04] MEDS: FOLIC ACID 1 MG TABLET (FP) PO SCH (10:07)
[2020-06-04] MEDS: PANTOPRAZOLE 40 MG TABLET PO SCH (10:07)
[2020-06-04] MEDS: FLUoxetine HCL 20 MG CAPSULE PO SCH (10:07)
[2020-06-04] MEDS: KETOCONAZOLE 2% CREAM - 60GM TUBE TP SCH (10:08)
[2020-06-04] MEDS: CHOLECALCIFEROL (VIT D3) 1,000 UNIT (25 MCG) TABLET PO SCH (10:08)
[2020-06-04] MEDS: OXYBUTYNIN CHLORIDE 5 MG TABLET PO SCH ×2 (10:08→21:26)
[2020-06-04] MEDS: METHYL SALICYLATE/MENTHOL OINT 30 GM TUBE TP SCH ×2 (10:08→21:28)
[2020-06-04] MEDS: SODIUM CHLORIDE NASAL SPRAY 44 ML BOTTLE NS PRN (10:09)
[2020-06-04] MEDS: CARBAMIDE PEROXIDE 6.5% OTIC 15 ML BOTTLE AS SCH ×2 (10:10→21:29)
[2020-06-04] MEDS ORDERED: QUEtiapine FUMARATE 25 MG TABLET ONE (19:46)
[2020-06-04] MEDS ORDERED: QUEtiapine FUMARATE 100 MG TABLET (FP) ONE (19:46)
[2020-06-04] MEDS: MELATONIN 5 MG TABLETS PO SCH (21:25)
[2020-06-04] MEDS: THIAMINE HCL 100 MG TABLET (FP) PO SCH (21:26)
[2020-06-04] MEDS: LIDOCAINE PATCH REMOVAL MC SCH (21:26)
[2020-06-04] MEDS: QUETIAPINE FUMARATE 100 MG, QUETIAPINE FUMARATE 25 MG PO SCH (21:26)
[2020-06-05] MEDS: hydrOXYzine PAMOATE 50 MG CAPSULE (FP) PO PRN ×2 (06:53→21:42)
[2020-06-05] MEDS: LEVOTHYROXINE NA 25 MCG TABLET (FP) PO SCH (06:53)
[2020-06-05] MEDS: HYDROXYCHLOROQUINE SO4 200 MG TABLET (FP) PO SCH ×2 (07:03→17:50)
[2020-06-05] MEDS ORDERED: PT OWN MED DRAWER 7, Y5N ONE (07:05)
[2020-06-05] MEDS: METHYL SALICYLATE/MENTHOL OINT 30 GM TUBE TP SCH ×2 (09:50→21:43)
[2020-06-05] MEDS: CARBAMIDE PEROXIDE 6.5% OTIC 15 ML BOTTLE AS SCH ×2 (09:50→21:43)
[2020-06-05] MEDS: LIDOCAINE 5% TOPICAL PATCH TP SCH (09:50)
[2020-06-05] MEDS: FOLIC ACID 1 MG TABLET (FP) PO SCH (09:50)
[2020-06-05] MEDS: OXYBUTYNIN CHLORIDE 5 MG TABLET PO SCH ×2 (09:50→21:42)
[2020-06-05] MEDS: PANTOPRAZOLE 40 MG TABLET PO SCH (09:51)
[2020-06-05] MEDS: PRENATAL VITAMINS W/ FOLIC ACID TABLET (FP) PO SCH (09:51)
[2020-06-05] MEDS: KETOCONAZOLE 2% CREAM - 60GM TUBE TP SCH (09:51)
[2020-06-05] MEDS: FLUoxetine HCL 20 MG CAPSULE PO SCH (09:51)
[2020-06-05] MEDS: CYANOCOBALAMIN 1,000 MCG TABLET (FP) PO SCH (09:52)
[2020-06-05] MEDS: CHOLECALCIFEROL (VIT D3) 1,000 UNIT (25 MCG) TABLET PO SCH (09:52)
--- NOTE | 2020-06-05 14:32 | PN ---
S Progress Note Note: Informed by nursing staff that patient wants to start Vivitrol. Patient unavailable for discussion of same. Talked to counselor who will review with patient her request to start Vivitrol because she informed the counselor she was interested in Campral. Will continue to monitor. Vital Signs Period Temp Pulse Resp BP Sys/[place] Pulse Ox Last 24 Hr 97.3 F 56 18 109/69 95-98
[2020-06-05] MEDS ORDERED: QUEtiapine FUMARATE 25 MG TABLET ONE (19:42)
[2020-06-05] MEDS ORDERED: QUEtiapine FUMARATE 100 MG TABLET (FP) ONE (19:42)
[2020-06-05] MEDS: THIAMINE HCL 100 MG TABLET (FP) PO SCH (21:41)
[2020-06-05] MEDS: QUETIAPINE FUMARATE 100 MG, QUETIAPINE FUMARATE 25 MG PO SCH (21:41)
[2020-06-05] MEDS: LIDOCAINE PATCH REMOVAL MC SCH (21:42)
[2020-06-05] MEDS: MELATONIN 5 MG TABLETS PO SCH (21:42)
[2020-06-06] MEDS: HYDROXYCHLOROQUINE SO4 200 MG TABLET (FP) PO SCH ×2 (07:04→17:24)
[2020-06-06] MEDS: LEVOTHYROXINE NA 25 MCG TABLET (FP) PO SCH (07:04)
[2020-06-06] MEDS ORDERED: PT OWN MED DRAWER 7, Y5N ONE ×4 (07:20→19:13)
[2020-06-06] MEDS: LIDOCAINE 5% TOPICAL PATCH TP SCH (09:58)
[2020-06-06] MEDS: SODIUM CHLORIDE NASAL SPRAY 44 ML BOTTLE NS PRN (09:58)
[2020-06-06] MEDS: PANTOPRAZOLE 40 MG TABLET PO SCH (09:59)
[2020-06-06] MEDS: PRENATAL VITAMINS W/ FOLIC ACID TABLET (FP) PO SCH (09:59)
[2020-06-06] MEDS: FOLIC ACID 1 MG TABLET (FP) PO SCH (09:59)
[2020-06-06] MEDS: CYANOCOBALAMIN 1,000 MCG TABLET (FP) PO SCH (09:59)
[2020-06-06] MEDS: KETOCONAZOLE 2% CREAM - 60GM TUBE TP SCH (09:59)
[2020-06-06] MEDS: METHYL SALICYLATE/MENTHOL OINT 30 GM TUBE TP SCH ×2 (10:00→21:49)
[2020-06-06] MEDS: CHOLECALCIFEROL (VIT D3) 1,000 UNIT (25 MCG) TABLET PO SCH (10:00)
[2020-06-06] MEDS: OXYBUTYNIN CHLORIDE 5 MG TABLET PO SCH ×2 (10:00→21:50)
[2020-06-06] MEDS: FLUoxetine HCL 20 MG CAPSULE PO SCH (10:00)
[2020-06-06] MEDS: hydrOXYzine PAMOATE 50 MG CAPSULE (FP) PO PRN ×2 (13:11→21:52)
[2020-06-06] MEDS ORDERED: QUEtiapine FUMARATE 100 MG TABLET (FP) ONE (19:12)
[2020-06-06] MEDS ORDERED: QUEtiapine FUMARATE 25 MG TABLET ONE (19:12)
[2020-06-06] MEDS: QUETIAPINE FUMARATE 100 MG, QUETIAPINE FUMARATE 25 MG PO SCH (21:50)
[2020-06-06] MEDS: MELATONIN 5 MG TABLETS PO SCH (21:50)
[2020-06-06] MEDS: THIAMINE HCL 100 MG TABLET (FP) PO SCH (21:50)
[2020-06-06] MEDS: LIDOCAINE PATCH REMOVAL MC SCH (21:50)
[2020-06-07] MEDS: LEVOTHYROXINE NA 25 MCG TABLET (FP) PO SCH (06:54)
[2020-06-07] MEDS: hydrOXYzine PAMOATE 50 MG CAPSULE (FP) PO PRN ×3 (06:55→23:37)
[2020-06-07] MEDS: HYDROXYCHLOROQUINE SO4 200 MG TABLET (FP) PO SCH ×2 (07:00→18:06)
[2020-06-07] MEDS ORDERED: PT OWN MED DRAWER 7, Y5N ONE ×5 (07:02→23:34)
[2020-06-07] MEDS: METHYL SALICYLATE/MENTHOL OINT 30 GM TUBE TP SCH ×2 (10:04→21:36)
[2020-06-07] MEDS: OXYBUTYNIN CHLORIDE 5 MG TABLET PO SCH ×2 (10:04→21:36)
[2020-06-07] MEDS: FOLIC ACID 1 MG TABLET (FP) PO SCH (10:05)
[2020-06-07] MEDS: LIDOCAINE 5% TOPICAL PATCH TP SCH (10:05)
[2020-06-07] MEDS: KETOCONAZOLE 2% CREAM - 60GM TUBE TP SCH (10:05)
[2020-06-07] MEDS: FLUoxetine HCL 20 MG CAPSULE PO SCH (10:06)
[2020-06-07] MEDS: SODIUM CHLORIDE NASAL SPRAY 44 ML BOTTLE NS PRN (10:06)
[2020-06-07] MEDS: PANTOPRAZOLE 40 MG TABLET PO SCH (10:06)
[2020-06-07] MEDS: PRENATAL VITAMINS W/ FOLIC ACID TABLET (FP) PO SCH (10:06)
[2020-06-07] MEDS: CYANOCOBALAMIN 1,000 MCG TABLET (FP) PO SCH (10:07)
[2020-06-07] MEDS: CHOLECALCIFEROL (VIT D3) 1,000 UNIT (25 MCG) TABLET PO SCH (10:07)
[2020-06-07] MEDS ORDERED: QUEtiapine FUMARATE 25 MG TABLET ONE (19:30)
[2020-06-07] MEDS ORDERED: QUEtiapine FUMARATE 100 MG TABLET (FP) ONE (19:30)
[2020-06-07] MEDS: THIAMINE HCL 100 MG TABLET (FP) PO SCH (21:34)
[2020-06-07] MEDS: QUETIAPINE FUMARATE 100 MG, QUETIAPINE FUMARATE 25 MG PO SCH (21:34)
[2020-06-07] MEDS: MELATONIN 5 MG TABLETS PO SCH (21:35)
[2020-06-07] MEDS: LIDOCAINE PATCH REMOVAL MC SCH (21:35)
[2020-06-08] MEDS: LEVOTHYROXINE NA 25 MCG TABLET (FP) PO SCH (06:30)
[2020-06-08] MEDS: hydrOXYzine PAMOATE 50 MG CAPSULE (FP) PO PRN ×3 (06:30→17:56)
[2020-06-08] MEDS: HYDROXYCHLOROQUINE SO4 200 MG TABLET (FP) PO SCH ×2 (07:00→17:57)
[2020-06-08] MEDS ORDERED: PT OWN MED DRAWER 7, Y5N ONE ×3 (08:10→17:55)
[2020-06-08] MEDS: KETOCONAZOLE 2% CREAM - 60GM TUBE TP SCH (09:53)
[2020-06-08] MEDS: PANTOPRAZOLE 40 MG TABLET PO SCH (09:54)
[2020-06-08] MEDS: CYANOCOBALAMIN 1,000 MCG TABLET (FP) PO SCH (09:54)
[2020-06-08] MEDS: OXYBUTYNIN CHLORIDE 5 MG TABLET PO SCH ×2 (09:54→21:50)
[2020-06-08] MEDS: PRENATAL VITAMINS W/ FOLIC ACID TABLET (FP) PO SCH (09:54)
[2020-06-08] MEDS: SODIUM CHLORIDE NASAL SPRAY 44 ML BOTTLE NS PRN (09:54)
[2020-06-08] MEDS: FLUoxetine HCL 20 MG CAPSULE PO SCH (09:54)
[2020-06-08] MEDS: CHOLECALCIFEROL (VIT D3) 1,000 UNIT (25 MCG) TABLET PO SCH (09:54)
[2020-06-08] MEDS: FOLIC ACID 1 MG TABLET (FP) PO SCH (09:54)
[2020-06-08] MEDS: LIDOCAINE 5% TOPICAL PATCH TP SCH (09:55)
[2020-06-08] MEDS: METHYL SALICYLATE/MENTHOL OINT 30 GM TUBE TP SCH ×2 (09:55→21:51)
[2020-06-08] MEDS ORDERED: QUEtiapine FUMARATE 25 MG TABLET ONE (21:09)
[2020-06-08] MEDS ORDERED: QUEtiapine FUMARATE 100 MG TABLET (FP) ONE (21:09)
[2020-06-08] MEDS: MELATONIN 5 MG TABLETS PO SCH (21:47)
[2020-06-08] MEDS: THIAMINE HCL 100 MG TABLET (FP) PO SCH (21:47)
[2020-06-08] MEDS: QUETIAPINE FUMARATE 100 MG, QUETIAPINE FUMARATE 25 MG PO SCH (21:48)
[2020-06-08] MEDS: IBUPROFEN 400 MG TABLET (FP) PO PRN (21:49)
[2020-06-08] MEDS: LIDOCAINE PATCH REMOVAL MC SCH (21:51)
[2020-06-09] MEDS: LEVOTHYROXINE NA 25 MCG TABLET (FP) PO SCH (06:44)
[2020-06-09] MEDS: hydrOXYzine PAMOATE 50 MG CAPSULE (FP) PO PRN ×3 (06:44→21:17)
[2020-06-09] MEDS: MAGNESIUM HYDROX 2400MG/30ML ORAL SUSPENSION 30 ML CUP PO PRN (06:46)
[2020-06-09] MEDS: HYDROXYCHLOROQUINE SO4 200 MG TABLET (FP) PO SCH ×2 (07:09→19:01)
[2020-06-09] MEDS ORDERED: PT OWN MED DRAWER 7, Y5N ONE ×3 (08:22→19:12)
[2020-06-09] MEDS ORDERED: COLLOIDAL OATMEAL 1 BAR EACH TP PRN (09:03)
[2020-06-09] MEDS: SODIUM CHLORIDE NASAL SPRAY 44 ML BOTTLE NS PRN (10:23)
[2020-06-09] MEDS: FOLIC ACID 1 MG TABLET (FP) PO SCH (10:23)
[2020-06-09] MEDS: FLUoxetine HCL 20 MG CAPSULE PO SCH (10:23)
[2020-06-09] MEDS: OXYBUTYNIN CHLORIDE 5 MG TABLET PO SCH ×2 (10:23→21:16)
[2020-06-09] MEDS: PANTOPRAZOLE 40 MG TABLET PO SCH (10:24)
[2020-06-09] MEDS: PRENATAL VITAMINS W/ FOLIC ACID TABLET (FP) PO SCH (10:24)
[2020-06-09] MEDS: KETOCONAZOLE 2% CREAM - 60GM TUBE TP SCH (10:25)
[2020-06-09] MEDS: LIDOCAINE 5% TOPICAL PATCH TP SCH (10:25)
[2020-06-09] MEDS: CYANOCOBALAMIN 1,000 MCG TABLET (FP) PO SCH (10:25)
[2020-06-09] MEDS: METHYL SALICYLATE/MENTHOL OINT 30 GM TUBE TP SCH ×2 (10:25→21:17)
[2020-06-09] MEDS: CHOLECALCIFEROL (VIT D3) 1,000 UNIT (25 MCG) TABLET PO SCH (10:26)
--- NOTE | 2020-06-09 12:42 | PN ---
[facility] Progress Note Note: Patient referred to [facility], however acceptance to program pending. Patient interested in campral treatment, however connect to OTP necessary for continuation of treatment. Counseling team to update nursing/medical staff once patient is accepted to program. Vital Signs Temperature 97.8 F 06/09/20 06:40 Pulse Rate 61 06/09/20 06:40 Respiratory Rate 16 06/09/20 06:40 Blood Pressure 135/82 06/09/20 06:40 O2 Sat by Pulse Oximetry (%) 97 06/09/20 06:40
[2020-06-09] MEDS ORDERED: QUEtiapine FUMARATE 25 MG TABLET ONE (19:11)
[2020-06-09] MEDS ORDERED: QUEtiapine FUMARATE 100 MG TABLET (FP) ONE (19:11)
[2020-06-09] MEDS: THIAMINE HCL 100 MG TABLET (FP) PO SCH (21:16)
[2020-06-09] MEDS: MELATONIN 5 MG TABLETS PO SCH (21:17)
[2020-06-09] MEDS: LIDOCAINE PATCH REMOVAL MC SCH (21:17)
[2020-06-09] MEDS: QUETIAPINE FUMARATE 100 MG, QUETIAPINE FUMARATE 25 MG PO SCH (21:17)
[2020-06-10] MEDS: LEVOTHYROXINE NA 25 MCG TABLET (FP) PO SCH (06:24)
[2020-06-10] MEDS: hydrOXYzine PAMOATE 50 MG CAPSULE (FP) PO PRN ×4 (06:25→21:39)
[2020-06-10] MEDS: HYDROXYCHLOROQUINE SO4 200 MG TABLET (FP) PO SCH ×2 (07:37→18:16)
[2020-06-10] MEDS: LIDOCAINE 5% TOPICAL PATCH TP SCH (09:51)
[2020-06-10] MEDS: FLUoxetine HCL 20 MG CAPSULE PO SCH (09:52)
[2020-06-10] MEDS: FOLIC ACID 1 MG TABLET (FP) PO SCH (09:52)
[2020-06-10] MEDS: PANTOPRAZOLE 40 MG TABLET PO SCH (09:52)
[2020-06-10] MEDS: CYANOCOBALAMIN 1,000 MCG TABLET (FP) PO SCH (09:52)
[2020-06-10] MEDS: CHOLECALCIFEROL (VIT D3) 1,000 UNIT (25 MCG) TABLET PO SCH (09:52)
[2020-06-10] MEDS: PRENATAL VITAMINS W/ FOLIC ACID TABLET (FP) PO SCH (09:53)
[2020-06-10] MEDS: OXYBUTYNIN CHLORIDE 5 MG TABLET PO SCH ×2 (09:53→21:38)
[2020-06-10] MEDS: METHYL SALICYLATE/MENTHOL OINT 30 GM TUBE TP SCH ×2 (09:53→21:40)
[2020-06-10] MEDS: KETOCONAZOLE 2% CREAM - 60GM TUBE TP SCH (09:53)
--- NOTE | 2020-06-10 10:34 | PN ---
S Progress Note Note: Patient wants to discuss starting Campral. Explained the actions of campral. Advised the patient that Campral could not be started until her referral was confirmed and we could be sure that the medications would be continued. Counseling aware. Vital Signs Period Temp Pulse Resp BP Sys/Moreau Pulse Ox Last 24 Hr 97.5 F 62 18 120/73 97-100
[2020-06-10] MEDS ORDERED: PT OWN MED DRAWER 7, Y5N ONE ×3 (17:18→21:53)
[2020-06-10] MEDS ORDERED: QUEtiapine FUMARATE 100 MG TABLET (FP) ONE (18:52)
[2020-06-10] MEDS ORDERED: QUEtiapine FUMARATE 25 MG TABLET ONE (18:52)
[2020-06-10] MEDS: THIAMINE HCL 100 MG TABLET (FP) PO SCH (21:37)
[2020-06-10] MEDS: MELATONIN 5 MG TABLETS PO SCH (21:37)
[2020-06-10] MEDS: LIDOCAINE PATCH REMOVAL MC SCH (21:37)
[2020-06-10] MEDS: QUETIAPINE FUMARATE 100 MG, QUETIAPINE FUMARATE 25 MG PO SCH (21:37)
[2020-06-11] MEDS: LEVOTHYROXINE NA 25 MCG TABLET (FP) PO SCH (06:40)
[2020-06-11] MEDS: hydrOXYzine PAMOATE 50 MG CAPSULE (FP) PO PRN ×3 (06:40→21:47)
[2020-06-11] MEDS: HYDROXYCHLOROQUINE SO4 200 MG TABLET (FP) PO SCH ×2 (07:16→17:04)
[2020-06-11] MEDS ORDERED: PT OWN MED DRAWER 7, Y5N ONE ×3 (09:01→17:02)
[2020-06-11] MEDS: LIDOCAINE 5% TOPICAL PATCH TP SCH (09:39)
[2020-06-11] MEDS: CHOLECALCIFEROL (VIT D3) 1,000 UNIT (25 MCG) TABLET PO SCH (09:39)
[2020-06-11] MEDS: PRENATAL VITAMINS W/ FOLIC ACID TABLET (FP) PO SCH (09:39)
[2020-06-11] MEDS: OXYBUTYNIN CHLORIDE 5 MG TABLET PO SCH ×2 (09:39→21:49)
[2020-06-11] MEDS: FLUoxetine HCL 20 MG CAPSULE PO SCH (09:40)
[2020-06-11] MEDS: CYANOCOBALAMIN 1,000 MCG TABLET (FP) PO SCH (09:40)
[2020-06-11] MEDS: PANTOPRAZOLE 40 MG TABLET PO SCH (09:40)
[2020-06-11] MEDS: METHYL SALICYLATE/MENTHOL OINT 30 GM TUBE TP SCH ×2 (09:41→21:49)
[2020-06-11] MEDS: KETOCONAZOLE 2% CREAM - 60GM TUBE TP SCH (09:41)
[2020-06-11] MEDS: FOLIC ACID 1 MG TABLET (FP) PO SCH (09:41)
[2020-06-11] MEDS: MAG HYDROX/AL HYDROX/SIMETH 30 ML UNIT-DOSE CUP PO PRN (11:04)
[2020-06-11] MEDS ORDERED: LACTULOSE 20 GM/30 ML UDC (FOR ORAL USE ONLY) PO PRN (11:15)
[2020-06-11] MEDS: LACTULOSE 20 GM/30 ML UDC (FOR ORAL USE ONLY) PO SCH ×2 (14:38→21:49)
--- NOTE | 2020-06-11 15:32 | PN ---
S Progress Note Note: Ammonia level elevated, mentation normal, no confusion noted. started Lactulose. Vital Signs Period Temp Pulse Resp BP Sys/Moreau Pulse Ox Last 24 Hr 97.5 F 59 18 118/73 96-97 Laboratory Last Values WBC 5.2 K/mm3 (4.0-10.0) 05/22/20 10:10 RBC 4.20 M/mm3 (3.60-5.2) 05/22/20 10:10 Hgb 13.2 GM/dL (10.7-15.3) 05/22/20 10:10 Hct 40.6 % (32.4-45.2) 05/22/20 10:10 MCV 96.6 fl (80-96) H 05/22/20 10:10 MCH 31.5 pg (25.7-33.7) 05/22/20 10:10 MCHC 32.6 g/dl (32.0-36.0) 05/22/20 10:10 RDW 16.0 % (11.6-15.6) H 05/22/20 10:10 Plt Count 256 K/MM3 (134-434) 05/22/20 10:10 MPV 8.9 fl (7.5-11.1) 05/22/20 10:10 Sickle Cell Screen Negative (NEGATIVE) 05/22/20 10:10 Sodium 137 mmol/L (136-145) 05/22/20 10:10 Potassium 4.6 mmol/L (3.5-5.1) 05/22/20 10:10 Chloride 103 mmol/L (98-107) 05/22/20 10:10 Carbon Dioxide 28 mmol/L (21-32) 05/22/20 10:10 Anion Gap 6 MMOL/L (8-16) L 05/22/20 10:10 BUN 14.0 mg/dL (7-18) 05/22/20 10:10 Creatinine 1.1 mg/dL (0.55-1.3) 05/22/20 10:10 Est GFR (CKD-EPI)AfAm 65.45 05/22/20 10:10 Est GFR (CKD-EPI)NonAf 56.47 05/22/20 10:10 POC Glucometer 98 UNITS (80-120) 05/26/20 06:31 Random Glucose 78 mg/dL (74-106) 08/20/20 10:10 Calcium 9.1 mg/dL (8.5-10.1) 05/22/20 10:10 Iron 55 ug/dL (50-175) 06/03/20 08:30 Total Bilirubin 0.5 mg/dL (0.2-1) 05/22/20 10:10 AST 28 U/L (15-37) 05/22/20 10:10 ALT 29 U/L (13-61) 05/22/20 10:10 Alkaline Phosphatase 101 U/L (45-117) 05/22/20 10:10 Ammonia 50.60 umol/L (11-32) H 06/11/20 07:50 Total Protein 7.6 g/dl (6.4-8.2) 05/22/20 10:10 Albumin 4.0 g/dl (3.4-5.0) 05/22/20 10:10 Urine Color Yellow 05/22/20 14:11 Urine Appearance Clear 05/22/20 14:11 Urine pH 5.0 (5.0-8.0) 05/22/20 14:11 Ur Specific [place] 1.009 (1.010-1.035) L 05/22/20 14:11 Urine Protein Negative (NEGATIVE) 05/22/20 14:11 Urine Glucose (UA) Negative (NEGATIVE) 05/22/20 14:11 Urine Ketones Negative (NEGATIVE) 05/22/20 14:11 Urine Blood Negative (NEGATIVE) 05/22/20 14:11 Urine Nitrite Negative (NEGATIVE) 05/22/20 14:11 Urine Bilirubin Negative (NEGATIVE) 05/22/20 14:11 Urine Urobilinogen 1.0 mg/dL (0.2-1.0) 05/22/20 14:11 Ur Leukocyte Esterase Negative (NEGATIVE) 05/22/20 14:11 POC Urine HCG, Qual Negative 05/22/20 08:50 Syphilis Serology Non-reactive (NONREACTIVE) 05/22/20 10:10 HIV Ag/Ab Combo Qual Negative (NEGATIVE) 05/22/20 10:10
[2020-06-11] MEDS ORDERED: QUEtiapine FUMARATE 25 MG TABLET ONE (19:23)
[2020-06-11] MEDS ORDERED: QUEtiapine FUMARATE 100 MG TABLET (FP) ONE (19:23)
[2020-06-11] MEDS: QUETIAPINE FUMARATE 100 MG, QUETIAPINE FUMARATE 25 MG PO SCH (21:47)
[2020-06-11] MEDS: MELATONIN 5 MG TABLETS PO SCH (21:47)
[2020-06-11] MEDS: LIDOCAINE PATCH REMOVAL MC SCH (21:47)
[2020-06-11] MEDS: THIAMINE HCL 100 MG TABLET (FP) PO SCH (21:47)
[2020-06-12] MEDS: LACTULOSE 20 GM/30 ML UDC (FOR ORAL USE ONLY) PO SCH ×3 (06:29→21:39)
[2020-06-12] MEDS: hydrOXYzine PAMOATE 50 MG CAPSULE (FP) PO PRN ×4 (06:30→21:39)
[2020-06-12] MEDS: LEVOTHYROXINE NA 25 MCG TABLET (FP) PO SCH (06:30)
[2020-06-12] MEDS: HYDROXYCHLOROQUINE SO4 200 MG TABLET (FP) PO SCH ×2 (08:25→17:52)
[2020-06-12] MEDS ORDERED: PT OWN MED DRAWER 7, Y5N ONE ×3 (09:13→21:04)
[2020-06-12] MEDS: LIDOCAINE 5% TOPICAL PATCH TP SCH (10:04)
[2020-06-12] MEDS: KETOCONAZOLE 2% CREAM - 60GM TUBE TP SCH (10:05)
[2020-06-12] MEDS: OXYBUTYNIN CHLORIDE 5 MG TABLET PO SCH ×2 (10:05→21:40)
[2020-06-12] MEDS: CHOLECALCIFEROL (VIT D3) 1,000 UNIT (25 MCG) TABLET PO SCH (10:06)
[2020-06-12] MEDS: PANTOPRAZOLE 40 MG TABLET PO SCH (10:06)
[2020-06-12] MEDS: CYANOCOBALAMIN 1,000 MCG TABLET (FP) PO SCH (10:06)
[2020-06-12] MEDS: PRENATAL VITAMINS W/ FOLIC ACID TABLET (FP) PO SCH (10:06)
[2020-06-12] MEDS: FLUoxetine HCL 20 MG CAPSULE PO SCH (10:06)
[2020-06-12] MEDS: FOLIC ACID 1 MG TABLET (FP) PO SCH (10:06)
[2020-06-12] MEDS: METHYL SALICYLATE/MENTHOL OINT 30 GM TUBE TP SCH ×2 (10:07→21:41)
[2020-06-12] MEDS ORDERED: QUEtiapine FUMARATE 100 MG TABLET (FP) ONE (19:16)
[2020-06-12] MEDS ORDERED: QUEtiapine FUMARATE 25 MG TABLET ONE (19:16)
[2020-06-12] MEDS: THIAMINE HCL 100 MG TABLET (FP) PO SCH (21:39)
[2020-06-12] MEDS: QUETIAPINE FUMARATE 100 MG, QUETIAPINE FUMARATE 25 MG PO SCH (21:39)
[2020-06-12] MEDS: MELATONIN 5 MG TABLETS PO SCH (21:40)
[2020-06-12] MEDS: LIDOCAINE PATCH REMOVAL MC SCH (21:40)
[2020-06-13] MEDS: LACTULOSE 20 GM/30 ML UDC (FOR ORAL USE ONLY) PO SCH ×3 (06:45→22:29)
[2020-06-13] MEDS: LEVOTHYROXINE NA 25 MCG TABLET (FP) PO SCH (06:45)
[2020-06-13] MEDS: hydrOXYzine PAMOATE 50 MG CAPSULE (FP) PO PRN ×3 (06:46→22:31)
[2020-06-13] MEDS: HYDROXYCHLOROQUINE SO4 200 MG TABLET (FP) PO SCH ×2 (07:29→18:17)
[2020-06-13] MEDS ORDERED: PT OWN MED DRAWER 7, Y5N ONE ×4 (07:31→19:22)
[2020-06-13] MEDS: PRENATAL VITAMINS W/ FOLIC ACID TABLET (FP) PO SCH (09:43)
[2020-06-13] MEDS: FOLIC ACID 1 MG TABLET (FP) PO SCH (09:43)
[2020-06-13] MEDS: KETOCONAZOLE 2% CREAM - 60GM TUBE TP SCH (09:43)
[2020-06-13] MEDS: OXYBUTYNIN CHLORIDE 5 MG TABLET PO SCH ×2 (09:43→22:29)
[2020-06-13] MEDS: PANTOPRAZOLE 40 MG TABLET PO SCH (09:43)
[2020-06-13] MEDS: FLUoxetine HCL 20 MG CAPSULE PO SCH (09:43)
[2020-06-13] MEDS: CHOLECALCIFEROL (VIT D3) 1,000 UNIT (25 MCG) TABLET PO SCH (09:43)
[2020-06-13] MEDS: LIDOCAINE 5% TOPICAL PATCH TP SCH (09:43)
[2020-06-13] MEDS: CYANOCOBALAMIN 1,000 MCG TABLET (FP) PO SCH (09:43)
[2020-06-13] MEDS: METHYL SALICYLATE/MENTHOL OINT 30 GM TUBE TP SCH ×2 (09:45→22:28)
[2020-06-13] MEDS: IBUPROFEN 400 MG TABLET (FP) PO PRN (18:17)
[2020-06-13] MEDS ORDERED: QUEtiapine FUMARATE 25 MG TABLET ONE (19:20)
[2020-06-13] MEDS ORDERED: QUEtiapine FUMARATE 100 MG TABLET (FP) ONE (19:20)
[2020-06-13] MEDS: THIAMINE HCL 100 MG TABLET (FP) PO SCH (22:29)
[2020-06-13] MEDS: QUETIAPINE FUMARATE 100 MG, QUETIAPINE FUMARATE 25 MG PO SCH (22:29)
[2020-06-13] MEDS: MELATONIN 5 MG TABLETS PO SCH (22:30)
[2020-06-13] MEDS: LIDOCAINE PATCH REMOVAL MC SCH (22:30)
[2020-06-14] MEDS ORDERED: PT OWN MED DRAWER 7, Y5N ONE ×4 (06:04→23:03)
[2020-06-14] MEDS: LEVOTHYROXINE NA 25 MCG TABLET (FP) PO SCH (06:44)
[2020-06-14] MEDS: LACTULOSE 20 GM/30 ML UDC (FOR ORAL USE ONLY) PO SCH ×3 (06:44→21:47)
[2020-06-14] MEDS: HYDROXYCHLOROQUINE SO4 200 MG TABLET (FP) PO SCH ×2 (08:30→18:25)
[2020-06-14] MEDS: LIDOCAINE 5% TOPICAL PATCH TP SCH (09:51)
[2020-06-14] MEDS: PRENATAL VITAMINS W/ FOLIC ACID TABLET (FP) PO SCH (09:52)
[2020-06-14] MEDS: PANTOPRAZOLE 40 MG TABLET PO SCH (09:53)
[2020-06-14] MEDS: CYANOCOBALAMIN 1,000 MCG TABLET (FP) PO SCH (09:53)
[2020-06-14] MEDS: CHOLECALCIFEROL (VIT D3) 1,000 UNIT (25 MCG) TABLET PO SCH (09:53)
[2020-06-14] MEDS: FOLIC ACID 1 MG TABLET (FP) PO SCH (09:53)
[2020-06-14] MEDS: OXYBUTYNIN CHLORIDE 5 MG TABLET PO SCH ×2 (09:53→21:46)
[2020-06-14] MEDS: FLUoxetine HCL 20 MG CAPSULE PO SCH (09:54)
[2020-06-14] MEDS: METHYL SALICYLATE/MENTHOL OINT 30 GM TUBE TP SCH ×2 (09:54→21:46)
[2020-06-14] MEDS: hydrOXYzine PAMOATE 50 MG CAPSULE (FP) PO PRN ×3 (09:56→21:45)
[2020-06-14] MEDS ORDERED: QUEtiapine FUMARATE 25 MG TABLET ONE (19:11)
[2020-06-14] MEDS ORDERED: QUEtiapine FUMARATE 100 MG TABLET (FP) ONE (19:11)
[2020-06-14] MEDS: THIAMINE HCL 100 MG TABLET (FP) PO SCH (21:44)
[2020-06-14] MEDS: LIDOCAINE PATCH REMOVAL MC SCH (21:45)
[2020-06-14] MEDS: QUETIAPINE FUMARATE 100 MG, QUETIAPINE FUMARATE 25 MG PO SCH (21:45)
[2020-06-14] MEDS: MELATONIN 5 MG TABLETS PO SCH (21:45)
[2020-06-15] MEDS ORDERED: PT OWN MED DRAWER 7, Y5N ONE ×3 (05:57→19:04)
[2020-06-15] MEDS: LEVOTHYROXINE NA 25 MCG TABLET (FP) PO SCH (06:19)
[2020-06-15] MEDS: LACTULOSE 20 GM/30 ML UDC (FOR ORAL USE ONLY) PO SCH ×3 (06:19→21:32)
[2020-06-15] MEDS: HYDROXYCHLOROQUINE SO4 200 MG TABLET (FP) PO SCH ×2 (07:05→18:30)
[2020-06-15] MEDS: IBUPROFEN 400 MG TABLET (FP) PO PRN (08:43)
[2020-06-15] MEDS: CHOLECALCIFEROL (VIT D3) 1,000 UNIT (25 MCG) TABLET PO SCH (09:45)
[2020-06-15] MEDS: FOLIC ACID 1 MG TABLET (FP) PO SCH (09:45)
[2020-06-15] MEDS: PRENATAL VITAMINS W/ FOLIC ACID TABLET (FP) PO SCH (09:45)
[2020-06-15] MEDS: OXYBUTYNIN CHLORIDE 5 MG TABLET PO SCH ×2 (09:45→21:32)
[2020-06-15] MEDS: LIDOCAINE 5% TOPICAL PATCH TP SCH (09:46)
[2020-06-15] MEDS: PANTOPRAZOLE 40 MG TABLET PO SCH (09:46)
[2020-06-15] MEDS: FLUoxetine HCL 20 MG CAPSULE PO SCH (09:46)
[2020-06-15] MEDS: CYANOCOBALAMIN 1,000 MCG TABLET (FP) PO SCH (09:46)
[2020-06-15] MEDS: hydrOXYzine PAMOATE 50 MG CAPSULE (FP) PO PRN ×3 (09:47→21:30)
[2020-06-15] MEDS: METHYL SALICYLATE/MENTHOL OINT 30 GM TUBE TP SCH ×2 (09:48→21:32)
--- NOTE | 2020-06-15 11:45 | PN ---
Psychiatric Progress Note Vital Signs: Vital Signs Period Temp Pulse Resp BP Sys/Moreau Pulse Ox Last 24 Hr 97.8 F 61 18 130/79 96-99 Date of Session: 06/15/20 Chief Complaint:: "i'm having anxiety." HPI: Patient admitted to [facility] for alcohol dependence. Consultation ordered due to patient reporting anxiety. ROS: Patient is ambulatory, calm , cooperative, alert + oriented X3. Consultation ordered due to patient c/o anxiety. Current Medications: Active Medications Generic Name Dose Route Start Last Admin Trade Name Freq PRN Reason Stop Dose Admin Al Hydroxide/Mg Hydroxide 30 ml 05/22/20 10:04 06/11/20 11:04 Mylanta Oral Suspension - PO 30 ml Q6H PRN Administration DYSPEPSIA Bupropion HCl 300 mg 05/23/20 11:30 06/15/20 09:46 Wellbutrin Xl - PO 300 mg DAILY TONY Administration Cholecalciferol 1,000 unit 05/27/20 10:00 06/15/20 09:45 Vitamin D3 - PO 1,000 unit DAILY TONY Administration Colloidal Oatmeal 1 applic 06/09/20 09:03 06/09/20 10:22 Aveeno Soap - TP 1 bar DAILY PRN Administration HYGEINE Cyanocobalamin 1,000 mcg 05/26/20 11:30 06/15/20 09:46 Vitamin B12 - PO 1,000 mcg DAILY TONY Administration Fluoxetine HCl 40 mg 05/23/20 11:30 06/15/20 09:46 Prozac - PO 40 mg DAILY TONY Administration Folic Acid 1 mg 05/23/20 10:00 06/15/20 09:45 Folic Acid - PO 1 mg DAILY TONY Administration Guaifenesin 10 ml 05/22/20 10:04 Robitussin - PO Q6H PRN COUGH Hydroxychloroquine Sulfate 200 mg 05/22/20 18:00 06/15/20 07:05 Plaquenil - PO 200 mg BID@0800,1800 TONY Administration Hydroxyzine Pamoate 50 mg 05/23/20 10:43 06/15/20 09:47 Vistaril - PO 50 mg Q4H PRN Administration ANXIETY Ibuprofen 400 mg 05/22/20 10:04 06/15/20 08:43 Motrin - PO 400 mg Q6H PRN Administration Pain level 4-6 Lactulose 20 gm 06/11/20 11:49 06/15/20 06:19 Cephulac (Oral Use) PO 20 gm TID TONY Administration Levothyroxine Sodium 75 mcg 05/23/20 07:00 06/15/20 06:19 Synthroid - PO 75 mcg DAILY@0700 TONY Administration Lidocaine 1 patch 05/28/20 15:30 06/15/20 09:46 Lidoderm Patch - TP 1 patch DAILY TONY Administration Loperamide HCl 4 mg 05/22/20 10:04 Imodium - PO Q6H PRN DIARRHEA Magnesium Citrate 300 ml 05/22/20 10:04 Citroma - PO Q48H PRN CONSTIPATION Magnesium Hydroxide 30 ml 05/22/20 10:04 06/09/20 06:46 Milk Of Magnesia - PO 30 ml DAILY PRN Administration CONSTIPATION Melatonin 5 mg 05/22/20 22:00 06/14/20 21:45 Melatonin PO 5 mg HS TONY Administration Methyl Salicylate 1 applic 05/28/20 22:00 06/15/20 09:48 [place] - TP Not Given BID TONY Miscellaneous 1 each 05/28/20 22:00 06/14/20 21:45 Lidoderm Patch Removal MC 1 each DAILY@2200 TONY Administration Oxybutynin Chloride 5 mg 06/02/20 22:00 06/15/20 09:45 Ditropan - PO 5 mg BID TONY Administration Pantoprazole Sodium 40 mg 06/04/20 10:00 06/15/20 09:46 Protonix - PO 40 mg DAILY TONY Administration Multivit/Folic Acid/Iron 1 tab 05/22/20 10:15 06/15/20 09:45 Vitamins (Sjr) - PO 1 tab DAILY TONY Administration Pseudoephedrine/Triprolidine 1 combo 05/22/20 10:04 Actifed - PO TID PRN NASAL CONGESTION Quetiapine Fumarate 100 mg/ 125 mg 05/23/20 22:00 06/14/20 21:45 Quetiapine Fumarate 25 mg PO 125 mg HS TONY Administration Sodium Chloride 2 spray 05/30/20 13:36 06/09/20 10:23 [place] Nasal [place] - NS 2 spray BID PRN Administration NASAL CONGESTION Thiamine HCl 100 mg 05/22/20 22:00 06/14/20 21:44 Vitamin B1 - PO 100 mg HS TONY Administration Tizanidine HCl 2 mg 05/28/20 15:05 05/31/20 21:13 Tizanidine Hcl PO 2 mg Q8H PRN Administration MUSCLE SPASMS Medication(s) Change(s): No. Current Side Effect: No Lab tests ordered: No Lab tests reviewed: Yes Provider note:: Patient seen by Dr. James. Dr. James's note read and appreciated. Today, patient reports anxiety due to her uncertanity of what to expect when she begins penitentiary treatment at [facility]. 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 Patient given positive reassurance and was informed to contact her counselor/ licensed master social worker on the 3[facility] to voice her concerns. Patient not interested in accepting additional psychotropic medications. Ms. [place] states that she is schedule for discharge on 06/17/20. Patient receptive and satisifed with feedback. Total face to face time:: 20 Mental Status Exam - Mental Status Exam Alert and Oriented to: Time, Place, Person Cognitive Function: Good Patient Appearance: Well Groomed Mood: Hopeful Affect: Appropriate Patient Behavior: Appropriate, Cooperative Speech Pattern: Appropriate Voice Loudness: Normal Thought Process: Goal Oriented Hallucinations: Denies Suicidal Ideation: Denies Homicidal Ideation: Denies Insight/Judgement: Poor Sleep: Fair Appetite: Fair Muscle strength/Tone: Normal Gait/Station: Other (Ambulates with a rolling walker.) Psychiatric Treatment Plan - Problem List (1) Alcohol use disorder Current Visit: Yes (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
[2020-06-15] MEDS ORDERED: QUEtiapine FUMARATE 100 MG TABLET (FP) ONE (20:23)
[2020-06-15] MEDS ORDERED: QUEtiapine FUMARATE 25 MG TABLET ONE (20:23)
[2020-06-15] MEDS: QUETIAPINE FUMARATE 100 MG, QUETIAPINE FUMARATE 25 MG PO SCH (21:30)
[2020-06-15] MEDS: THIAMINE HCL 100 MG TABLET (FP) PO SCH (21:30)
[2020-06-15] MEDS: MELATONIN 5 MG TABLETS PO SCH (21:31)
[2020-06-15] MEDS: LIDOCAINE PATCH REMOVAL MC SCH (21:31)
[2020-06-16] MEDS ORDERED: PT OWN MED DRAWER 7, Y5N ONE ×3 (03:50→16:46)
[2020-06-16] MEDS: LACTULOSE 20 GM/30 ML UDC (FOR ORAL USE ONLY) PO SCH ×3 (06:42→21:11)
[2020-06-16] MEDS: LEVOTHYROXINE NA 25 MCG TABLET (FP) PO SCH (06:42)
[2020-06-16] MEDS: HYDROXYCHLOROQUINE SO4 200 MG TABLET (FP) PO SCH ×2 (07:59→17:43)
[2020-06-16] MEDS: FOLIC ACID 1 MG TABLET (FP) PO SCH (09:46)
[2020-06-16] MEDS: PRENATAL VITAMINS W/ FOLIC ACID TABLET (FP) PO SCH (09:47)
[2020-06-16] MEDS: CYANOCOBALAMIN 1,000 MCG TABLET (FP) PO SCH (09:47)
[2020-06-16] MEDS: FLUoxetine HCL 20 MG CAPSULE PO SCH (09:47)
[2020-06-16] MEDS: CHOLECALCIFEROL (VIT D3) 1,000 UNIT (25 MCG) TABLET PO SCH (09:47)
[2020-06-16] MEDS: PANTOPRAZOLE 40 MG TABLET PO SCH (09:47)
[2020-06-16] MEDS: OXYBUTYNIN CHLORIDE 5 MG TABLET PO SCH ×2 (09:47→21:11)
[2020-06-16] MEDS: METHYL SALICYLATE/MENTHOL OINT 30 GM TUBE TP SCH ×2 (09:48→21:11)
[2020-06-16] MEDS: LIDOCAINE 5% TOPICAL PATCH TP SCH (09:48)
--- NOTE | 2020-06-16 12:38 | DS ---
[facility] Rehab Discharge Summary - [facility] Rehab Discharge Summary Admission Date: 05/22/20 Discharge Date: 06/16/20 - History Present History: Alcohol dependence - Discharge Physical Exam Vital Signs: Vital Signs Temperature 97.5 F L 06/16/20 06:25 Pulse Rate 68 06/16/20 06:25 Respiratory Rate 16 06/16/20 06:25 Blood Pressure 131/78 06/16/20 06:25 O2 Sat by Pulse Oximetry (%) 96 06/16/20 06:25 Laboratory Tests 05/22/20 05/22/20 05/22/20 08:50 10:10 10:10 WBC 5.2 RBC 4.20 Hgb 13.2 Hct 40.6 MCV 96.6 H MCH 31.5 MCHC 32.6 RDW 16.0 H Plt Count 256 MPV 8.9 Sickle Cell Screen Negative Sodium Potassium Chloride Carbon Dioxide Anion Gap BUN Creatinine Est GFR (CKD-EPI)AfAm Est GFR (CKD-EPI)NonAf POC Glucometer Random Glucose Calcium Iron Total Bilirubin AST ALT Alkaline Phosphatase Ammonia Total Protein Albumin Urine Color Urine Appearance Urine pH Ur Specific [place] Urine Protein Urine Glucose (UA) Urine Ketones Urine Blood Urine Nitrite Urine Bilirubin Urine Urobilinogen Ur Leukocyte Esterase POC Urine HCG, Qual Negative Syphilis Serology HIV Ag/Ab Combo Qual Negative 05/22/20 05/22/20 05/22/20 10:10 10:10 14:11 WBC RBC Hgb Hct MCV MCH MCHC RDW Plt Count MPV Sickle Cell Screen Sodium 137 Potassium 4.6 Chloride 103 Carbon Dioxide 28 Anion Gap 6 L BUN 14.0 Creatinine 1.1 Est GFR (CKD-EPI)AfAm 65.45 Est GFR (CKD-EPI)NonAf 56.47 POC Glucometer Random Glucose 78 Calcium 9.1 Iron Total Bilirubin 0.5 AST 28 ALT 29 Alkaline Phosphatase 101 Ammonia Total Protein 7.6 Albumin 4.0 Urine Color Yellow Urine Appearance Clear Urine pH 5.0 Ur Specific [place] 1.009 L Urine Protein Negative Urine Glucose (UA) Negative Urine Ketones Negative Urine Blood Negative Urine Nitrite Negative Urine Bilirubin Negative Urine Urobilinogen 1.0 Ur Leukocyte Esterase Negative POC Urine HCG, Qual Syphilis Serology Non-reactive HIV Ag/Ab Combo Qual 05/24/20 05/25/20 05/26/20 06:18 06:25 06:31 WBC RBC Hgb Hct MCV MCH MCHC RDW Plt Count MPV Sickle Cell Screen Sodium Potassium Chloride Carbon Dioxide Anion Gap BUN Creatinine Est GFR (CKD-EPI)AfAm Est GFR (CKD-EPI)NonAf POC Glucometer 88 85 98 Random Glucose Calcium Iron Total Bilirubin AST ALT Alkaline Phosphatase Ammonia Total Protein Albumin Urine Color Urine Appearance Urine pH Ur Specific [place] Urine Protein Urine Glucose (UA) Urine Ketones Urine Blood Urine Nitrite Urine Bilirubin Urine Urobilinogen Ur Leukocyte Esterase POC Urine HCG, Qual Syphilis Serology HIV Ag/Ab Combo Qual 06/03/20 06/11/20 08:30 07:50 WBC RBC Hgb Hct MCV MCH MCHC RDW Plt Count MPV Sickle Cell Screen Sodium Potassium Chloride Carbon Dioxide Anion Gap BUN Creatinine Est GFR (CKD-EPI)AfAm Est GFR (CKD-EPI)NonAf POC Glucometer Random Glucose Calcium Iron 55 Total Bilirubin AST ALT Alkaline Phosphatase Ammonia 50.60 H Total Protein Albumin Urine Color Urine Appearance Urine pH Ur Specific [place] Urine Protein Urine Glucose (UA) Urine Ketones Urine Blood Urine Nitrite Urine Bilirubin Urine Urobilinogen Ur Leukocyte Esterase POC Urine HCG, Qual Syphilis Serology HIV Ag/Ab Combo Qual ROS: denies back pain, shakes, sweats, anxiety, restlessness and alcohol cravings PE alert and oriented x 3 skin warm and dry +perrla, eoms intact bl gi nt, nd ext no tremors, full rom, amb ad darlene denies si/hi A/P: alcohol dependence 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 During course of treatment, patient evaluated and treated by psychiatry team, attended group meetings and participated in 1:1 counseling sessions. She is medically stable at this time and denies SI/HI. Medically treated for elevated ammonia levels with lactulose and repeat level drawn today. Aftercare arranged for [facility] and appt scheduled for 06/17/2020 at 10am. Patient medically advised to follow up with PCP as recommended once treatment completed and to continue with aftercare recommendations to prevent relapse. Ambulatory Orders Bupropion HCl [Wellbutrin Sr] 300 mg PO DAILY 05/22/20 Fluoxetine HCl [Prozac] 40 mg PO DAILY 05/22/20 Levothyroxine Sodium [Synthroid] 75 mcg PO DAILY 05/22/20 Mirabegron [Myrbetriq] 50 mg PO HS 05/22/20 Quetiapine Fumarate [Seroquel] 125 mg PO HS 05/22/20 Cholecalciferol (Vitamin D3) [Vitamin D3 -] 1,000 unit PO DAILY #30 tab 06/16/20 Cyanocobalamin [Vitamin B12 -] 1,000 mcg PO DAILY #30 tablet 06/16/20 Folic Acid 1 mg PO DAILY #14 tablet 06/16/20 Hydroxychloroquine Sulfate [Plaquenil] 200 mg PO BID #30 tablet 06/16/20 Levothyroxine [Synthroid -] 75 mcg PO DAILY@0700 #14 tablet 06/16/20 Oxybutynin Chloride [Ditropan -] 5 mg PO BID #30 tablet 06/16/20 Tizanidine HCl 2 mg PO Q8H PRN #30 tablet 06/16/20 - Medication Discharge Medications: Ambulatory Orders Bupropion HCl [Wellbutrin Sr] 300 mg PO DAILY 05/22/20 Fluoxetine HCl [Prozac] 40 mg PO DAILY 05/22/20 Levothyroxine Sodium [Synthroid] 75 mcg PO DAILY 05/22/20 Mirabegron [Myrbetriq] 50 mg PO HS 05/22/20 Quetiapine Fumarate [Seroquel] 125 mg PO HS 05/22/20 Cholecalciferol (Vitamin D3) [Vitamin D3 -] 1,000 unit PO DAILY #30 tab 06/16/20 Cyanocobalamin [Vitamin B12 -] 1,000 mcg PO DAILY #30 tablet 06/16/20 Folic Acid 1 mg PO DAILY #14 tablet 06/16/20 Hydroxychloroquine Sulfate [Plaquenil] 200 mg PO BID #30 tablet 06/16/20 Levothyroxine [Synthroid -] 75 mcg PO DAILY@0700 #14 tablet 06/16/20 Oxybutynin Chloride [Ditropan -] 5 mg PO BID #30 tablet 06/16/20 Tizanidine HCl 2 mg PO Q8H PRN #30 tablet 06/16/20 - Medication-Assisted Treatment (MAT) Medication-Assisted Treatment (MAT): No MAT Follow-up Referral: millicent Lopez 06/17/2020 at 10am - Discharge Instructions Diet, activity, other medical instructions: Diet: reg as tolerated Activity: amb ad darlene Other medical instructions: f/u with pcp as recommended - Follow-up Referral Minutes to complete discharge: 35 - AMA Did Patient Leave Against Medical Advice: No
[2020-06-16] MEDS: hydrOXYzine PAMOATE 50 MG CAPSULE (FP) PO PRN ×2 (14:32→21:09)
--- NOTE | 2020-06-16 14:39 | PN ---
[facility] Progress Note Note: Patient is scheduled for discharge tomorrow. Scripts for 30 days supply of medications(Wellbutrin XL 300 mg/day, Prozac 40 mg/day, Seroquel 125 mg/hs) will be electronically transmitted to [facility], [address] [place] [address]
--- NOTE | 2020-06-16 15:32 | PN ---
[facility] Progress Note Note: Laboratory Tests 05/22/20 05/22/20 05/22/20 08:50 10:10 10:10 WBC 5.2 RBC 4.20 Hgb 13.2 Hct 40.6 MCV 96.6 H MCH 31.5 MCHC 32.6 RDW 16.0 H Plt Count 256 MPV 8.9 Sickle Cell Screen Negative Sodium Potassium Chloride Carbon Dioxide Anion Gap BUN Creatinine Est GFR (CKD-EPI)AfAm Est GFR (CKD-EPI)NonAf POC Glucometer Random Glucose Calcium Iron Total Bilirubin AST ALT Alkaline Phosphatase Ammonia Total Protein Albumin Urine Color Urine Appearance Urine pH Ur Specific [place] Urine Protein Urine Glucose (UA) Urine Ketones Urine Blood Urine Nitrite Urine Bilirubin Urine Urobilinogen Ur Leukocyte Esterase POC Urine HCG, Qual Negative Syphilis Serology HIV Ag/Ab Combo Qual Negative 05/22/20 05/22/20 05/22/20 10:10 10:10 14:11 WBC RBC Hgb Hct MCV MCH MCHC RDW Plt Count MPV Sickle Cell Screen Sodium 137 Potassium 4.6 Chloride 103 Carbon Dioxide 28 Anion Gap 6 L BUN 14.0 Creatinine 1.1 Est GFR (CKD-EPI)AfAm 65.45 Est GFR (CKD-EPI)NonAf 56.47 POC Glucometer Random Glucose 78 Calcium 9.1 Iron Total Bilirubin 0.5 AST 28 ALT 29 Alkaline Phosphatase 101 Ammonia Total Protein 7.6 Albumin 4.0 Urine Color Yellow Urine Appearance Clear Urine pH 5.0 Ur Specific [place] 1.009 L Urine Protein Negative Urine Glucose (UA) Negative Urine Ketones Negative Urine Blood Negative Urine Nitrite Negative Urine Bilirubin Negative Urine Urobilinogen 1.0 Ur Leukocyte Esterase Negative POC Urine HCG, Qual Syphilis Serology Non-reactive HIV Ag/Ab Combo Qual 05/24/20 05/25/20 05/26/20 06:18 06:25 06:31 WBC RBC Hgb Hct MCV MCH MCHC RDW Plt Count MPV Sickle Cell Screen Sodium Potassium Chloride Carbon Dioxide Anion Gap BUN Creatinine Est GFR (CKD-EPI)AfAm Est GFR (CKD-EPI)NonAf POC Glucometer 88 85 98 Random Glucose Calcium Iron Total Bilirubin AST ALT Alkaline Phosphatase Ammonia Total Protein Albumin Urine Color Urine Appearance Urine pH Ur Specific [place] Urine Protein Urine Glucose (UA) Urine Ketones Urine Blood Urine Nitrite Urine Bilirubin Urine Urobilinogen Ur Leukocyte Esterase POC Urine HCG, Qual Syphilis Serology HIV Ag/Ab Combo Qual 06/03/20 06/11/20 06/16/20 08:30 07:50 11:30 WBC RBC Hgb Hct MCV MCH MCHC RDW Plt Count MPV Sickle Cell Screen Sodium Potassium Chloride Carbon Dioxide Anion Gap BUN Creatinine Est GFR (CKD-EPI)AfAm Est GFR (CKD-EPI)NonAf POC Glucometer Random Glucose Calcium Iron 55 Total Bilirubin AST ALT Alkaline Phosphatase Ammonia 50.60 H 53.20 H Total Protein Albumin Urine Color Urine Appearance Urine pH Ur Specific [place] Urine Protein Urine Glucose (UA) Urine Ketones Urine Blood Urine Nitrite Urine Bilirubin Urine Urobilinogen Ur Leukocyte Esterase POC Urine HCG, Qual Syphilis Serology HIV Ag/Ab Combo Qual AMMONIA LEVEL 53.20. LACTULOSE CONTINUED. PRESCRIPTION SENT TO PHARMACY.
[2020-06-16] MEDS ORDERED: QUEtiapine FUMARATE 100 MG TABLET (FP) ONE (19:12)
[2020-06-16] MEDS ORDERED: QUEtiapine FUMARATE 25 MG TABLET ONE (19:13)
[2020-06-16] MEDS: QUETIAPINE FUMARATE 100 MG, QUETIAPINE FUMARATE 25 MG PO SCH (21:09)
[2020-06-16] MEDS: THIAMINE HCL 100 MG TABLET (FP) PO SCH (21:09)
[2020-06-16] MEDS: LIDOCAINE PATCH REMOVAL MC SCH (21:10)
[2020-06-16] MEDS: MELATONIN 5 MG TABLETS PO SCH (21:10)
[2020-06-17] MEDS: LACTULOSE 20 GM/30 ML UDC (FOR ORAL USE ONLY) PO SCH (06:20)
[2020-06-17] MEDS: LEVOTHYROXINE NA 25 MCG TABLET (FP) PO SCH (06:21)
[2020-06-17] MEDS: hydrOXYzine PAMOATE 50 MG CAPSULE (FP) PO PRN (06:21)
[2020-06-17] MEDS: HYDROXYCHLOROQUINE SO4 200 MG TABLET (FP) PO SCH (07:04)
[2020-06-17 07:21] VITALS: BP 121/66; PULSE 82; TEMP 97.6
--- NOTE | 2020-06-17 08:40 | PN ---
S Progress Note Note: Pt is scheduled to discharge today after completing Rehab. Pt reports she has PCP, Dr. Hermann Cook @ [address], [place] Vital Signs - 24 hr 06/16/20 06/17/20 20:20 06:25 Temperature 98.2 F 97.6 F Pulse Rate 82 Respiratory 18 Rate Blood Pressure 121/66 O2 Sat by Pulse 97 100 Oximetry (%) General:WDWN femalke, Alert o x 3 Resp:no resp difficulty MSK:oob ambulating with steady gait with cane;Active FROM, all limbs. SKin:intact Medically stable D/c pt today to [facility] aftercare. D/W pt to follow up with primary care after discharge.
== END 2020-06-17 08:44 | disposition other institution (70) | DRG 895 ==
LOC: YASAS 08:20 → Y3E 11:38
PROVIDERS: ADMIT Allergy & Immunology; ATTEND Allergy & Immunology
PROC: HZ42ZZZ Group Counseling for Substance Abuse Treatment, Cognitive-Behavioral (ICD-10-PCS; principal; 2020-05-22)
DX: F10.20 Alcohol dependence, uncomplicated (principal); F33.9 Major depressive disorder, recurrent, unspecified; F10.282 Alcohol dependence with alcohol-induced sleep disorder; F10.280 Alcohol dependence with alcohol-induced anxiety disorder; F10.24 Alcohol dependence with alcohol-induced mood disorder; D50.9 Iron deficiency anemia, unspecified; D35.2 Benign neoplasm of pituitary gland; E03.9 Hypothyroidism, unspecified; M79.7 Fibromyalgia; M35.00 Sjogren syndrome, unspecified; M54.6 Pain in thoracic spine; N32.81 Overactive bladder; G89.29 Other chronic pain; R21 Rash and other nonspecific skin eruption; Z96.651 Presence of right artificial knee joint; R42 Dizziness and giddiness; R26.89 Other abnormalities of gait and mobility; E66.9 Obesity, unspecified; Z68.39 Body mass index [BMI] 39.0-39.9, adult; Z99.89 Dependence on other enabling machines and devices; Z98.84 Bariatric surgery status; Z91.048 Other nonmedicinal substance allergy status
CPT/HCPCS: 36415; 80053; 81003; 81025; 82140; 82962; 83540; 85027; 85660; 86780; 87389; 93005; 93010